=== PATIENT | male | born 1935 | race Native Hawaiian/Other Pacific Islander ===

== ENCOUNTER 2016-05-12 01:31 | Emergency (ER) | payer MEDICARE, OTHER ==
[~2016-05-12] VITALS: Ht 172.7 cm; Wt 80.0 kg
[~2016-05-12 01:31] MED LIST: ALFU1TAB10 PO; ASPI1TAB7 PO; BUDE.25I NEB; LOSA100T PO; PREN0.01 PO; VITA-83 PO; VITA200017 PO
[2016-05-12 01:34] VITALS: BP 136/86; PULSE 96; RESP 18; TEMP 98.1; O2SAT 96
[2016-05-12] MEDS ORDERED: SODIUM CHLOR 0.9% 1000 ML INJ 1,000 ML IV SCH (01:34)
[2016-05-12 01:37] VITALS: O2SAT 98
[2016-05-12] MEDS ORDERED: HYDROmorphone HCL PF 1 MG/ML VIAL IVS ONE (01:45)
[2016-05-12] MEDS ORDERED: ONDANSETRON HCL 4 MG/2 ML VIAL IVP ONE (01:45)
[2016-05-12] MEDS ORDERED: SODIUM CHLORIDE 0.9% FLUSH 5 ML FLUSH IVF PRN (01:45)
[2016-05-12 02:02] VITALS: BP 136/86; PULSE 100; RESP 25; O2SAT 95
[2016-05-12 02:02] LABS: AUTOMATED NEUTROPHIL # 7.5 TH/MM3 (1.8-7.7); BASOPHIL % 0.4 % (0.0-2.0); EOSINOPHIL # 0.1 TH/MM3 (0-0.4); EOSINOPHIL % 0.8 % (0.0-4.0); HEMATOCRIT 33.8 % (39.0-51.0); HEMO FLAGS DIFF FINAL; LYMPH % 16.4 % (9.0-44.0); LYMPHOCYTE # 1.7 TH/MM3 (1.0-4.8); MEAN CELL VOLUME 88.2 FL (80.0-100.0); MEAN CORPUSCULAR HEMOGLOBIN 30.7 PG (27.0-34.0); MEAN CORPUSCULAR HGB CONC 34.8 % (32.0-36.0); MONO % 8.3 % (0.0-8.0); NEUT % 74.1 % (16.0-70.0); PLATELET COUNT 214 TH/MM3 (150-450); RED BLOOD COUNT 3.83 MIL/MM3 (4.50-5.90); RED CELL DISTRIBUTION WIDTH 13.2 % (11.6-17.2); WHITE BLOOD COUNT 10.2 TH/MM3 (4.0-11.0)
[2016-05-12] MEDS ORDERED: DIATRIZOATE MEGLUM/DIATRIZOATE SOD 9 ML CUP ONE ×2 (02:10→02:53)
[2016-05-12 02:17] LABS: ALT (GPT) 18 U/L (12-78); ANION GAP 10 MEQ/L (5-15); AST (GOT) 17 U/L (15-37); BICARBONATE 21.8 MEQ/L (21.0-32.0); BLOOD UREA NITROGEN 21 MG/DL (7-18); CHLORIDE 107 MEQ/L (98-107); GLOMERULAR FILTRATION RATE 98 ML/MIN (>89); POTASSIUM 3.7 MEQ/L (3.5-5.1); SODIUM (NA) 139 MEQ/L (136-145)
[2016-05-12 02:19] LABS: ALKALINE PHOSPHATASE 80 U/L (45-117); TOTAL BILIRUBIN ADULT 0.8 MG/DL (0.2-1.0)
--- NOTE | 2016-05-12 02:24 | PD ---
HPI Chief Complaint: GI Complaint Time Seen by Provider: 01:34 Travel History International Travel<30 days: No Contact w/Intl Traveler<30days: No Traveled to known affect area: No History of Present Illness HPI The patient is 81 years old. He arrives from [facility] and [facility]. A plain film of the abdomen there revealed distention of the small and large bowel. No air-fluid level was. EMS notes tenderness primarily in the right abdomen with distention. Seen the blood pressure was 120/86 heart rate was 90 with a pulse ox of 97% earlier in the evening he received oral analgesics without benefit. No N/V. He reports worsening pain in the abdomen w coughing. He states he has had no flatus. Patient has a PEG tube. PFSH Past Medical History Arthritis: Yes Asthma: No Blood Disorders: No Anxiety: Yes Depression: Yes Heart Rhythm Problems: No Cancer: Yes Cardiovascular Problems: Yes (hx anemia, hyperlipidemia, ) High Cholesterol: No Chemotherapy: Yes Chest Pain: No Congestive Heart Failure: No COPD: No Diabetes: No Diminished Hearing: Yes Endocrine: No Gastrointestinal Disorders: Yes GERD: No Glaucoma: No Genitourinary: Yes (FREQUENCY, prostate hypertrophy) Headaches: Yes Hepatitis: No Hiatal Hernia: No Hypertension: Yes Immune Disorder: No Implanted Vascular Access Dvce: Yes Kidney Stones: No Musculoskeletal: Yes (post laminectomy syndrome, chronic pain, osteoarthritis) Neurologic: Yes (tremor, cerebral atherosclerosis, ?tia, bells palsy, brachial neuritis) Psychiatric: Yes (anxiety/ depression) Reproductive: No Respiratory: Yes (hx bronchitis 05/12) Migraines: Yes Radiation Therapy: Yes (SEEDS?) Renal Failure: No Seizures: No Sleep Apnea: No Thyroid Disease: No Ulcer: No PNEUMOCCOCAL Vaccine (Year): 1 Past Surgical History AICD: No Appendectomy: No Arteriovenous Shunt: No Body Medical Devices: PINS IN BACK Cholecystectomy: No Eye Surgery: Yes (CATARACTS ZORAIDA) Genitourinary Surgery: Yes (PROSTATE SEEDS) Insulin Pump: No Joint Replacement: Yes (zoraida KNEES, RT SHOULDER ) Neurologic Surgery: Yes (LUMBAR FUSION, cervical fusion) Oral Surgery: Yes (WISDOM TEETH) Pacemaker: No Other Surgery: Yes Social History Alcohol Use: Yes (rare occ) Tobacco Use: No Substance Use: No Allergies-Medications (Allergen,Severity, Reaction): Coded Allergies: Flomax (Verified Allergy, Severe, SWELLING IN EARS, 05/12/16) Hydroxyzine (Verified Allergy, Severe, JOINT SWELLING, 05/12/16) denies Iodine (Verified Allergy, Severe, topical causes joint swelling, 05/12/16) STATES IODINE INTRAVENOUSLY CAUSED REACTION NOT TOPICAL denies Reported Meds & Prescriptions Reported Meds & Active Scripts Active Reported Vitamin C (Ascorbic Acid) 500 Mg Tab 500 Mg G-TUBE Ultram (Tramadol HCl) 50 Mg Tab 50 Mg G-TUBE Q6H PRN Risperdal (Risperidone) 0.5 Mg Tab 0.5 Mg G-TUBE HS Nuedexta 20-10 mg (Dextromethorphan HBr-Quinidine) 1 Cap Cap 1 Cap G-TUBE Q12HR Natural Balance Tears Opth Drops (Artificial Tear Solution Opth Drops) 0.1-0.3% Soln 1 Drop EACH EYE QID Losartan (Losartan Potassium) 100 Mg Tab 100 Mg G-TUBE DAILY Doxazosin (Doxazosin Mesylate) 4 Mg Tab 4 Mg G-TUBE DAILY Cimetidine 200 Mg Tab 200 Mg G-TUBE BID Ativan (Lorazepam) 0.5 Mg Tab 0.5 Mg G-TUBE Q6H PRN Review of Systems Except as stated in HPI: all other systems reviewed are Neg Physical Exam Narrative GENERAL: 81-year-old male well-nourished well-developed moderate distress secondary to pain SKIN: Warm and dry. HEAD: Atraumatic. Normocephalic. EYES: Pupils equal and round. No scleral icterus. No injection or drainage. ENT: No nasal bleeding or discharge. Mucous membranes pink and moist. NECK: Trachea midline. No JVD. CARDIOVASCULAR: Regular rate and rhythm. No murmur appreciated. RESPIRATORY: No accessory muscle use. Clear to auscultation. Breath sounds equal bilaterally. GASTROINTESTINAL: Distention. Diffuse tenderness. Intact PEG tube without erythema or signs cellulitis at site of entry. MUSCULOSKELETAL: No obvious deformities. No clubbing. No cyanosis. No edema. NEUROLOGICAL: Awake and alert. No obvious cranial nerve deficits. Motor grossly within normal limits. Normal speech. PSYCHIATRIC: Appropriate mood and affect; insight and judgment normal. Data Data Last Documented VS Vital Signs Date Time Temp Pulse Resp B/P Pulse Ox O2 Delivery O2 Flow Rate FiO2 05/12/16 02:02 18 05/12/16 02:02 100 136/86 95 Room Air 05/12/16 01:34 98.1 VS reviewed Orders Complete Blood Count With Diff (05/12/16 01:34) Comprehensive Metabolic Panel (05/12/16 01:34) Lactic Acid (05/12/16 01:34) Ct Abd/Pel W/O Iv Contrast (05/12/16 01:34) Iv Access Insert/Monitor (05/12/16 01:34) Ecg Monitoring (05/12/16 01:34) Oximetry (05/12/16 01:34) Ondansetron Inj (Zofran Inj) (05/12/16 01:45) Sodium Chlor 0.9% 1000 Ml Inj (Ns 1000 M (05/12/16 01:34) Sodium Chloride 0.9% Flush (Ns Flush) (05/12/16 01:45) Hydromorphone Pf Inj (Dilaudid Pf Inj) (05/12/16 01:45) Oral Contrast - Adult (05/12/16 01:45) Diatrizoate Liq (Md Lam Liq) (05/12/16 02:10) Hydromorphone Pf Inj (Dilaudid Pf Inj) (05/12/16 03:00) Diatrizoate Liq (Md Lam Liq) (05/12/16 02:53) Labs Laboratory Tests Test 05/12/16 01:45 White Blood Count 10.2 TH/MM3 Red Blood Count 3.83 MIL/MM3 Hemoglobin 11.8 GM/DL Hematocrit 33.8 % Mean Corpuscular Volume 88.2 FL Mean Corpuscular Hemoglobin 30.7 PG Mean Corpuscular Hemoglobin 34.8 % Concent Red Cell Distribution Width 13.2 % Platelet Count 214 TH/MM3 Mean Platelet Volume 7.1 FL Neutrophils (%) (Auto) 74.1 % Lymphocytes (%) (Auto) 16.4 % Monocytes (%) (Auto) 8.3 % Eosinophils (%) (Auto) 0.8 % Basophils (%) (Auto) 0.4 % Neutrophils # (Auto) 7.5 TH/MM3 Lymphocytes # (Auto) 1.7 TH/MM3 Monocytes # (Auto) 0.8 TH/MM3 Eosinophils # (Auto) 0.1 TH/MM3 Basophils # (Auto) 0.0 TH/MM3 CBC Comment DIFF FINAL Differential Comment Sodium Level 139 MEQ/L Potassium Level 3.7 MEQ/L Chloride Level 107 MEQ/L Carbon Dioxide Level 21.8 MEQ/L Anion Gap 10 MEQ/L Blood Urea Nitrogen 21 MG/DL Creatinine 0.76 MG/DL Estimat Glomerular Filtration 98 ML/MIN Rate Random Glucose 113 MG/DL Lactic Acid Level 1.6 mmol/L Calcium Level 7.9 MG/DL Total Bilirubin 0.8 MG/DL Aspartate Amino Transf 17 U/L (AST/SGOT) Alanine Aminotransferase 18 U/L (ALT/SGPT) Alkaline Phosphatase 80 U/L Total Protein 7.2 GM/DL Albumin 2.6 GM/DL MDM Medical Decision Making Medical Screen Exam Complete: Yes Emergency Medical Condition: Yes Medical Record Reviewed: Yes Differential Diagnosis Gastritis, pancreatitis, appendicitis, acute cholecystitis, ascending cholangitis, AAA, perforated viscous, mesenteric ischemia, hepatitis, cystitis, hydronephrosis/hydroureter/nephroureter calculus, mesenteric adenitis, biliary colic Narrative Course CBC & BMP Diagram 05/12/16 01:45 LFTs normal Lactic acid 1.6 Gastric tube was placed on low intermittent suction approximately 150 cc of red brownish aspirate was collected. Last 24 hours Impressions Abdomen/Pelvis CT 05/12/16 0134 Signed Impressions: Service Date/Time: Thursday, May 12, 2016 03:01 - CONCLUSION: 1. No evidence of acute abdominal or pelvic process. No masses are identified. 2. Fecal impaction 3. Bibasilar atelectasis Jaxon Erwin MD Case was discussed with the radiologist over the phone specifically with regard to possible obstruction. Dr. Erwin cannot find any evidence of small or large bowel obstruction. There is a large fecal load in the rectal vault. The patient may benefit from an enema. He is quite sleepy 4:50 AM after 2 doses of Dilaudid. Fortunately there is no medical or surgical emergency and the patient can be discharged home. The abdomen of note is quite rotund however there is prominent intra and extra abdominal that likely contributory. Diagnosis Primary Impression: Constipation Qualified Code: K59.00 - Constipation, unspecified constipation type Referrals: DR CARMONA 1 day Additional Instructions: You have a choice when it comes to health care, and we are glad that you chose [facility]. Hopefully, we have met your expectations on today's visit. You are welcome to return to [facility] at any time, as we are committed to meeting the health care needs of our community. Med/Other Pt SpecificInfo: Prescription(s) given Scripts Sodium Phosphates (Enema Cedyx-Ti-Bzo)1 Nena Ene1 Units [place] Q2HR #4 Prov:Emmanuel Wellington MD 05/12/16 Disposition: 01 DISCHARGE HOME Condition: Stable Emmanuel Wellington MD May 12, 2016 02:24
[2016-05-12] MEDS ORDERED: HYDROmorphone HCL PF 1 MG/ML VIAL IV PUSH ONE (03:00)
--- NOTE | 2016-05-12 03:57 | RADRPT ---
EXAM DATE/TIME: 05/12/2016 03:01 [facility] COMPARISON: No previous studies available for comparison. INDICATIONS : Abdomen pain. Posiible obstruction. ORAL CONTRAST: Partial prescribed oral contrast ingested. RADIATION DOSE: 12.13 CTDIvol (mGy) MEDICAL HISTORY : Cardiovascular disease. Hypertension. Carcinoma, prostate. SURGICAL HISTORY : Total knee replacement, left. Total knee replacement, right.Fusion, lumbar.Peg Tube ENCOUNTER: Initial ACUITY: 1 day PAIN SCALE: 5/10 LOCATION: Bilateral abdomen TECHNIQUE: Volumetric scanning of the abdomen and pelvis was performed. Using automated exposure control and ad justment of the mA and/or kV according to patient size, radiation dose was kept as low as reasonably achievable to obtain optimal diagnostic quality images. FINDINGS: There is subsegmental atelectasis in the both bases. Coronary artery calcifications are present. A s mall hiatal hernia is present. The liver and spleen are normal in size and no focal defects are identified. The gallbladder and panc reas are unremarkable. No intrahepatic or extrahepatic ductal dilatation is seen. The right adrenal g land is unremarkable. There is a nodule in the left adrenal gland likely reflecting adenoma measuring 8 mm. The right kidney is unremarkable. There is a single simple cyst in the left kidney measuring 3.5 cm in the midpole. Gastrostomy tube is present Examination of the pelvis demonstrates no evidence of free fluid or pelvic mass. No abnormally enlarg ed inguinal or retroperitoneal lymph nodes are present. The bladder is unremarkable. There is diverti culosis without evidence of diverticulitis. Fecal impaction is present. CONCLUSION: 1. No evidence of acute abdominal or pelvic process. No masses are identified. 2. Fecal impaction 3. Bibasilar atelectasis Jaxon Erwin MD on May 12, 2016 at 3:50 Board Certified Radiologist. This report was verified electronically.
[2016-05-12] MEDS ORDERED: CIME200T G-TUBE (04:19)
[2016-05-12] MEDS ORDERED: ULTR50TA5 G-TUBE (04:19)
[2016-05-12] MEDS ORDERED: RISP0.5T20 G-TUBE (04:19)
[2016-05-12] MEDS ORDERED: NUED20CA G-TUBE (04:19)
[2016-05-12] MEDS ORDERED: DOXA1TAB34 G-TUBE (04:19)
[2016-05-12] MEDS ORDERED: VITA500T G-TUBE (04:19)
[2016-05-12] MEDS ORDERED: ARTI99.0 EACH EYE (04:19)
[2016-05-12] MEDS ORDERED: LOSA100T G-TUBE (04:19)
[2016-05-12] MEDS ORDERED: LORA-392 G-TUBE (04:19)
[2016-05-12] MEDS ORDERED: SODIENE9 PR (04:56)
[2016-05-12 05:13] VITALS: BP 100/53; PULSE 53; RESP 18; TEMP 98.1; O2SAT 100
[2016-05-12] MEDS ORDERED: SOD PHOSPHATE/SOD BIPHOSPHATE (ADULT) ENEMA 133ML PR ONE (05:45)
[2016-05-12 06:02] VITALS: BP 111/83; PULSE 104; RESP 20; TEMP 98.4; O2SAT 96
[2016-05-12 08:30] VITALS: BP 113/76; PULSE 93; RESP 20; O2SAT 93
[2016-05-21] MEDS ORDERED: SODIUM CHLOR 0.45% 1000 ML INJ 1,000 ML IV SCH (18:49)
[2016-05-21] MEDS ORDERED: NALOXONE HCL 0.4 MG/ML AMP IV PRN (19:00)
[2016-05-21] MEDS ORDERED: SODIUM CHLORIDE 0.9% FLUSH 5 ML FLUSH FLUSH PRN (19:00)
[2016-05-21] MEDS ORDERED: ACETAMINOPHEN 325 MG TAB PO PRN (19:00)
[2016-05-21] MEDS ORDERED: ONDANSETRON HCL 4 MG/2 ML VIAL IVP PRN (19:00)
[2016-05-21] MEDS ORDERED: MAGNESIUM HYDROXIDE SUSP 30 ML CUP PO PRN (19:00)
[2016-05-21] MEDS ORDERED: oxyCODONE/ACETAMINOPHEN 5 MG/325 MG TAB PO PRN (19:15)
[2016-05-21] MEDS ORDERED: SODIUM CHLORIDE 0.9% FLUSH 5 ML FLUSH FLUSH SCH (21:00)
== END 2016-05-12 09:06 | disposition home or self-care (01) ==
LOC: NEPC 01:31 → NEPA 09:06
DX: K59.00 Constipation, unspecified (principal); E78.5 Hyperlipidemia, unspecified; D64.9 Anemia, unspecified; N40.0 Benign prostatic hyperplasia without lower urinary tract symptoms; I10 Essential (primary) hypertension; G51.0 Bell's palsy; M54.12 Radiculopathy, cervical region; R25.1 Tremor, unspecified
CPT/HCPCS: 74176; 80053; 83605; 85025; 96361; 96374; 96375; 96376; 99284; J1170; J2405; J7030; Q9963

== ENCOUNTER 2016-05-21 15:27 | Inpatient (IN) | payer MEDICARE, OTHER ==
[~2016-05-21] VITALS: Ht 167.6 cm; Wt 77.6 kg
[2016-05-21] VITALS (7 sets, daily range): BP systolic 111–125; BP diastolic 70–83; PULSE 96–105; RESP 18–20; TEMP 96–97.6; O2SAT 95–100
[~2016-05-21 15:27] MED LIST changes: -ALFU1TAB10 PO; +ARTI99.0 EACH EYE; -ASPI1TAB7 PO; -BUDE.25I NEB; +CIME200T G-TUBE; +DOXA1TAB34 G-TUBE; +LORA-392 G-TUBE; +LOSA100T G-TUBE; -LOSA100T PO; +NUED20CA G-TUBE; -PREN0.01 PO; +RISP0.5T20 G-TUBE; +SODIENE9 PR; +ULTR50TA5 G-TUBE; -VITA-83 PO; -VITA200017 PO; +VITA500T G-TUBE
[2016-05-21] MEDS ORDERED: SODIUM CHLOR 0.9% 1000 ML INJ 1,000 ML IV SCH (15:43)
[2016-05-21] MEDS ORDERED: PANTOPRAZOLE SODIUM 40 MG VIAL IVP ONE (15:45)
[2016-05-21] MEDS ORDERED: ONDANSETRON HCL 4 MG/2 ML VIAL IVP ONE (15:45)
--- NOTE | 2016-05-21 16:10 | PD ---
HPI Chief Complaint: GI Complaint Time Seen by Provider: 15:43 Travel History International Travel<30 days: No Contact w/Intl Traveler<30days: No Traveled to known affect area: No History of Present Illness HPI 81-year-old male was brought in by EMS from abdominal distention, nausea vomiting and possible constipation. retirement personnel reported patient has not had a bowel movement for one week. Patient has increased abdominal distention with nausea vomiting today. Patient is noncommunicable and unable to provide information. Patient has history of anemia, dyslipidemia, hypertension, anxiety depression, back surgery. Patient has G-tube in place however treating was withhold today secondary to vomiting and abdominal distention. PFSH Past Medical History Arthritis: Yes Asthma: No Blood Disorders: No Anxiety: Yes Depression: Yes Heart Rhythm Problems: No Cancer: Yes Cardiovascular Problems: Yes (hx anemia, hyperlipidemia, ) High Cholesterol: No Chemotherapy: Yes Chest Pain: No Congestive Heart Failure: No COPD: No Diabetes: No Diminished Hearing: Yes Endocrine: No Gastrointestinal Disorders: Yes GERD: No Glaucoma: No Genitourinary: Yes (FREQUENCY, prostate hypertrophy) Headaches: Yes Hepatitis: No Hiatal Hernia: No Hypertension: Yes Immune Disorder: No Implanted Vascular Access Dvce: Yes Kidney Stones: No Musculoskeletal: Yes (post laminectomy syndrome, chronic pain, osteoarthritis) Neurologic: Yes (tremor, cerebral atherosclerosis, ?tia, bells palsy, brachial neuritis) Psychiatric: Yes (anxiety/ depression) Reproductive: No Respiratory: Yes (hx bronchitis 05/12) Migraines: Yes Radiation Therapy: Yes (SEEDS?) Renal Failure: No Seizures: No Sleep Apnea: No Thyroid Disease: No Ulcer: No PNEUMOCCOCAL Vaccine (Year): 1 Past Surgical History AICD: No Appendectomy: No Arteriovenous Shunt: No Body Medical Devices: PINS IN BACK Cholecystectomy: No Eye Surgery: Yes (CATARACTS ZORAIDA) Genitourinary Surgery: Yes (PROSTATE SEEDS) Insulin Pump: No Joint Replacement: Yes (zoraida KNEES, RT SHOULDER ) Neurologic Surgery: Yes (LUMBAR FUSION, cervical fusion) Oral Surgery: Yes (WISDOM TEETH) Pacemaker: No Other Surgery: Yes Social History Alcohol Use: No Tobacco Use: No Substance Use: No Allergies-Medications (Allergen,Severity, Reaction): Coded Allergies: Flomax (Verified Allergy, Severe, SWELLING IN EARS, 05/12/16) Hydroxyzine (Verified Allergy, Severe, JOINT SWELLING, 05/12/16) denies Iodine (Verified Allergy, Severe, topical causes joint swelling, 05/12/16) STATES IODINE INTRAVENOUSLY CAUSED REACTION NOT TOPICAL denies Reported Meds & Prescriptions Reported Meds & Active Scripts Active Enema Dnnde-Is-Jxl (Sodium Phosphates) 1 Nena Nena 1 Units [place] Q2HR Reported Vitamin C (Ascorbic Acid) 500 Mg Tab 500 Mg G-TUBE Ultram (Tramadol HCl) 50 Mg Tab 50 Mg G-TUBE Q6H PRN Risperdal (Risperidone) 0.5 Mg Tab 0.5 Mg G-TUBE HS Nuedexta 20-10 mg (Dextromethorphan HBr-Quinidine) 1 Cap Cap 1 Cap G-TUBE Q12HR Natural Balance Tears Opth Drops (Artificial Tear Solution Opth Drops) 0.1-0.3% Soln 1 Drop EACH EYE QID Losartan (Losartan Potassium) 100 Mg Tab 100 Mg G-TUBE DAILY Doxazosin (Doxazosin Mesylate) 4 Mg Tab 4 Mg G-TUBE DAILY Cimetidine 200 Mg Tab 200 Mg G-TUBE BID Ativan (Lorazepam) 0.5 Mg Tab 0.5 Mg G-TUBE Q6H PRN Review of Systems General / Constitutional: No: Fever Eyes: No: Visual changes HENT: No: Headaches Cardiovascular: No: Chest Pain or Discomfort Respiratory: No: Shortness of Breath Gastrointestinal: Positive: Nausea, Changes in Bowel Habits, No: Abdominal Pain Genitourinary: No: Dysuria Musculoskeletal: No: Pain Skin: No Rash Neurologic: No: Weakness Psychiatric: No: Depression Endocrine: No: Polydipsia Hematologic/Lymphatic: No: Easy Bruising Physical Exam Narrative GENERAL: Well-nourished, well-developed patient. SKIN: Warm and dry. HEAD: Normocephalic. EYES: No scleral icterus. No injection or drainage. NECK: Supple, trachea midline. No JVD or lymphadenopathy. CARDIOVASCULAR: Regular rate and rhythm without murmurs, gallops, or rubs. RESPIRATORY: Breath sounds equal bilaterally. No accessory muscle use. GASTROINTESTINAL: Abdomen distended. Hypoactive bowel sounds. No guarding. MUSCULOSKELETAL: No cyanosis, or edema. BACK: Nontender without obvious deformity. No CVA tenderness. Neurologic exam: Patient is awake and alert however noncommunicable. Patient moves all extremity well. No obvious focal neurological deficit. Data Data Last Documented VS Vital Signs Date Time Temp Pulse Resp B/P Pulse Ox O2 Delivery O2 Flow Rate FiO2 05/21/16 15:36 97.6 105 20 125/75 100 Orders Complete Blood Count With Diff (05/21/16 15:43) Comprehensive Metabolic Panel (05/21/16 15:43) Lipase (05/21/16 15:43) Prothrombin Time / Inr (Pt) (05/21/16 15:43) Act Partial Throm Time (Ptt) (05/21/16 15:43) Urinalysis - C+S If Indicated (05/21/16 15:43) Ct Abd/Pel W Iv Contrast(Rout) (05/21/16 15:43) Iv Access Insert/Monitor (05/21/16 15:43) Ecg Monitoring (05/21/16 15:43) Oximetry (05/21/16 15:43) Ondansetron Inj (Zofran Inj) (05/21/16 15:45) Pantoprazole Inj (Protonix Inj) (05/21/16 15:45) Sodium Chlor 0.9% 1000 Ml Inj (Ns 1000 M (05/21/16 15:43) Electrocardiogram (05/21/16 15:43) Chest, Single Ap (05/21/16 15:43) MDM Medical Decision Making Medical Screen Exam Complete: Yes Emergency Medical Condition: Yes Differential Diagnosis Differential diagnosis including gastritis, small bowel obstruction, large bowel obstruction, constipation, fecal impaction. Narrative Course 81-year-old male with abdominal distention, vomiting, possible constipation. Rod Siu MD May 21, 2016 16:10
--- NOTE | 2016-05-21 16:11 | RADRPT ---
EXAM DATE/TIME: 05/21/2016 15:59 [facility] COMPARISON: CT ABDOMEN & PELVIS W/O CONTRAST, May 12, 2016, 3:01. CHEST SINGLE AP, April 10, 2012, 2:06. INDICATIONS : Altered mental status. MEDICAL HISTORY : Cardiovascular disease. Hypertension. Carcinoma,prostate. SURGICAL HISTORY : Peg tube ENCOUNTER: Initial ACUITY: 1 day PAIN SCORE: Non-responsive. LOCATION: Bilateral chest FINDINGS: A single view of the chest demonstrates the lungs to be symmetrically aerated without evidence of mas s, infiltrate or effusion. There is hypoaeration of both lung alejandro most likely from poor aspiratio n. The cardiomediastinal contours are unremarkable. Osseous structures are intact and stable. There are multiple air-filled dilated loops of colon in the abdomen. CONCLUSION: No acute pulmonary infiltrates. Distended air-filled loops of colon. Franki Melton MD on May 21, 2016 at 16:08 Board Certified Radiologist. This report was verified electronically.
[2016-05-21 16:27] LABS: AUTOMATED NEUTROPHIL # 10.3 TH/MM3 (1.8-7.7); BASOPHIL % 0.3 % (0.0-2.0); EOSINOPHIL % 0.2 % (0.0-4.0); HEMATOCRIT 31.8 % (39.0-51.0); HEMO FLAGS DIFF FINAL; LYMPH % 7.1 % (9.0-44.0); LYMPHOCYTE # 0.8 TH/MM3 (1.0-4.8); MEAN CELL VOLUME 89.8 FL (80.0-100.0); MEAN CORPUSCULAR HEMOGLOBIN 30.9 PG (27.0-34.0); MEAN CORPUSCULAR HGB CONC 34.4 % (32.0-36.0); MONO % 3.2 % (0.0-8.0); NEUT % 89.2 % (16.0-70.0); PLATELET COUNT 344 TH/MM3 (150-450); RED BLOOD COUNT 3.54 MIL/MM3 (4.50-5.90); RED CELL DISTRIBUTION WIDTH 13.8 % (11.6-17.2); WHITE BLOOD COUNT 11.6 TH/MM3 (4.0-11.0)
[2016-05-21 16:31] LABS: APTT (PATIENT) 27.2 SEC (24.3-30.1); PROTHROMBIN TIME - PATIENT 11.4 SEC (9.8-11.6)
[2016-05-21 16:37] LABS: ANION GAP 9 MEQ/L (5-15); BICARBONATE 26.3 MEQ/L (21.0-32.0); BLOOD UREA NITROGEN 25 MG/DL (7-18); CHLORIDE 98 MEQ/L (98-107); GLOMERULAR FILTRATION RATE 59 ML/MIN (>89); POTASSIUM 4.4 MEQ/L (3.5-5.1); SODIUM (NA) 133 MEQ/L (136-145)
[2016-05-21 16:40] LABS: ALKALINE PHOSPHATASE 104 U/L (45-117); ALT (GPT) 32 U/L (12-78); AST (GOT) 23 U/L (15-37)
[2016-05-21] MEDS ORDERED: IPRASOL INH (16:51)
[2016-05-21] MEDS ORDERED: LORA1TAB12 G-TUBE (16:51)
[2016-05-21] MEDS ORDERED: FERR325T G-TUBE (16:51)
[2016-05-21] MEDS ORDERED: VITA2000 G-TUBE (16:56)
[2016-05-21 17:36] LABS: BLOOD, URINE NEG (NEG); COMMENT (UR) CULT NOT INDICATED; CULTURE IF INDICATED CULT NOT INDICATED; GLUCOSE,URINE NEG (NEG); HYALINE CAST, URINE 2 /lpf (RARE); KETONE, URINE TRACE mg/dL (NEG); MUCUS URINE FEW /lpf (OCC); NITRITE,URINE NEG (NEG); SQUAMOUS EPITHELIAL CELL URINE <1 /hpf (0-5); URINE COLOR YELLOW (YELLW/STRAW)
--- NOTE | 2016-05-21 17:37 | RADRPT ---
EXAM DATE/TIME: 05/21/2016 16:54 [facility] COMPARISON: CT THORAX W/O CONTRAST, April 07, 2012, 18:37. CT ABDOMEN & PELVIS W/O CONTRAST, May 12, 2016 , 3:01. INDICATIONS : Abdomen pain with distention and vomiting for 1 week. ORAL CONTRAST: No oral contrast ingested. RADIATION DOSE: 13.14 CTDIvol (mGy) MEDICAL HISTORY : Hypertension. Carcinoma, prostate. Anemia SURGICAL HISTORY : Fusion, lumbar. Total knee replacement, left.Total knee replacement, right.Peg tube ENCOUNTER: Initial ACUITY: 1 day PAIN SCALE: 7/10 LOCATION: Bilateral abdomen TECHNIQUE: Volumetric scanning of the abdomen and pelvis was performed. Using automated exposure control and ad justment of the mA and/or kV according to patient size, radiation dose was kept as low as reasonably achievable to obtain optimal diagnostic quality images. FINDINGS: LOWER LUNGS: Mild lung base atelectasis. LIVER: Homogeneous density without lesion. There is no dilation of the biliary tree. No calcified gallston es. SPLEEN: Normal size without lesion. PANCREAS: Within normal limits. KIDNEYS: Exophytic left renal cyst arising posterolateral with the midpole region. No evidence of hydronephros is. ADRENAL GLANDS: Within normal limits. VASCULAR: There is no aortic aneurysm. BOWEL/MESENTERY: A gastrostomy tube is present with balloon in the body the stomach. There is moderate fluid and gaseo us distention of bowel loops throughout the abdomen and pelvis including the entire colon. There is a bundant formed stool in the rectum. There is diverticular involvement of the sigmoid region without d efinite wall thickening or inflammatory change identified. There is no evidence of extraluminal gas o r fluid. ABDOMINAL WALL: Within normal limits. RETROPERITONEUM: There is no lymphadenopathy. BLADDER: No wall thickening or mass. REPRODUCTIVE: Within normal limits. INGUINAL: Surgical clips in the right inguinal region. No evidence of adenopathy. MUSCULOSKELETAL: Degenerative changes in the spine and previous lumbar spine hardware fusion. CONCLUSION: Diffuse fluid and gaseous distention of bowel throughout. Significant stool again noted within the re ctum. No other acute CT findings. Jose Breen MD on May 21, 2016 at 17:27 Board Certified Radiologist. This report was verified electronically.
--- NOTE | 2016-05-21 19:11 | HHI.HP ---
[facility] Jaxon Enriquez MD Admission Diagnosis obstipation, bowel obstruction Diagnoses: (1) Fecal impaction Diagnosis: Principal (2) Constipation Diagnosis: Principal (3) Dehydration Diagnosis: Principal (4) Leukocytosis Diagnosis: Principal Travel History International Travel<30 Days: No Contact w/Intl Traveler <30 Da: No Traveled to Known Affected Are: No History of Present Illness Is an 81-year-old male with PMH of HTN, Anxiety, Depression, Prostate CA, Chronic Pain, Post Laminectomy Syndrome and PEG Tube Placement who was sent to the ER from [facility] for evaluation of abdominal distention, nausea and vomiting. Recent ER visit 05/12/16 for similar symptoms, CT Abd/ Pelvis 05/12/16 w/ fecal impaction, d/c'd from ER w/ prescription for Enema. Sent to ER again today for same. Per records, pt with no BM x1 wk. No fever or diarrhea reported. Pt unable to provide history. On arrival, BP 125/75, HR 105, O2 sat 100% on RA, Afebrile. WBC 11.6. GFR 59 decreased from 98 on . UA negative for UTI. CXR with no acute findings. CT Abd/Pelvis w/ diffuse fluid and gaseous distention of bowel throughout, significant stool again noted within the rectum. GI Consult placed by ER physician, s/p Protonix IV in ER. Review of Systems ROS: Unable to obtain Past Family Social History Past Medical History PMH: HTN, Anxiety, Depression, Prostate CA, Chronic Pain, Post Laminectomy Syndrome and PEG Tube Placement Past Surgical History PAST SURGICAL HISTORY: Bilateral Cataract Surgery, Prostate Seeds, Bilateral Knee Replacement, Right Shoulder Replacement, Lumbar and Cervical Fusion, [place] Teeth Extraction Allergies: Coded Allergies: Flomax (Verified Allergy, Severe, SWELLING IN EARS, 05/12/16) Hydroxyzine (Verified Allergy, Severe, JOINT SWELLING, 05/12/16) denies Iodine (Verified Allergy, Severe, topical causes joint swelling, 05/12/16) STATES IODINE INTRAVENOUSLY CAUSED REACTION NOT TOPICAL denies Family History PAST FAMILY HISTORY: Reviewed. No h/o DM or CAD Social History PAST SOCIAL HISTORY: Negative for alcohol, tobacco or drugs. Physical Exam Vital Signs Vital Signs Date Time Temp Pulse Resp B/P Pulse Ox O2 Delivery O2 Flow Rate FiO2 05/21/16 18:08 105 18 118/79 95 Room Air 05/21/16 17:15 101 20 117/71 96 Room Air 05/21/16 16:02 96 Room Air 05/21/16 15:36 97.6 105 20 125/75 100 Physical Exam PE: GENERAL: Elderly white male in no acute distress, nonverbal HEENT: PERRLA, EOMI. No scleral icterus or conjunctival pallor. No lid lag or facial droop. CARDIOVASCULAR: Regular rate and rhythm. No obvious murmurs to auscultation. No chest tenderness to palpation. RESPIRATORY: No obvious rhonchi or wheezing. Clear to auscultation. Breath sounds equal bilaterally. GASTROINTESTINAL: Abdomen soft, non-tender, nondistended. BS normal. PEG tube in place. MUSCULOSKELETAL: Extremities without clubbing, cyanosis, or edema. No obvious deformities. NEUROLOGICAL: Awake, alert, nonverbal. No new focal neurologic deficits. Moving both upper and lower extremities spontaneously. Laboratory Laboratory Tests Test 05/21/16 05/21/16 16:00 17:12 White Blood Count 11.6 Red Blood Count 3.54 Hemoglobin 10.9 Hematocrit 31.8 Mean Corpuscular Volume 89.8 Mean Corpuscular Hemoglobin 30.9 Mean Corpuscular Hemoglobin 34.4 Concent Red Cell Distribution Width 13.8 Platelet Count 344 Mean Platelet Volume 7.2 Neutrophils (%) (Auto) 89.2 Lymphocytes (%) (Auto) 7.1 Monocytes (%) (Auto) 3.2 Eosinophils (%) (Auto) 0.2 Basophils (%) (Auto) 0.3 Neutrophils # (Auto) 10.3 Lymphocytes # (Auto) 0.8 Monocytes # (Auto) 0.4 Eosinophils # (Auto) 0.0 Basophils # (Auto) 0.0 CBC Comment DIFF FINAL Differential Comment Prothrombin Time 11.4 Prothromb Time International 1.0 Ratio Activated Partial 27.2 Thromboplast Time Sodium Level 133 Potassium Level 4.4 Chloride Level 98 Carbon Dioxide Level 26.3 Anion Gap 9 Blood Urea Nitrogen 25 Creatinine 1.19 Estimat Glomerular Filtration 59 Rate Random Glucose 188 Calcium Level 9.5 Total Bilirubin 1.0 Aspartate Amino Transf 23 (AST/SGOT) Alanine Aminotransferase 32 (ALT/SGPT) Alkaline Phosphatase 104 Total Protein 9.1 Albumin 3.1 Lipase 73 Urine Color YELLOW Urine Turbidity CLEAR Urine pH 6.0 Urine Specific [place] 1.027 Urine Protein 30 Urine Glucose (UA) NEG Urine Ketones TRACE Urine Occult Blood NEG Urine Nitrite NEG Urine Bilirubin NEG Urine Urobilinogen 2.0 Urine Leukocyte Esterase NEG Urine WBC 2 Urine Squamous Epithelial <1 Cells Urine Amorphous Sediment RARE Urine Hyaline Casts 2 Urine Mucus FEW Microscopic Urinalysis Comment CULT NOT INDICATED Result Diagram: 05/21/16 1600 05/21/16 1600 Assessment and Plan Problem List: (1) Fecal impaction ICD Code: K56.41 Status: Acute (2) Constipation ICD Code: K59.00 Status: Acute (3) Dehydration ICD Code: E86.0 Status: Acute (4) Leukocytosis ICD Code: D72.829 Status: Acute Assessment and Plan A/P: 1. Fecal Impaction: sent to ER from SNF secondary to abdominal distention, nausea/vomiting, similar presentation 05/12/16, CT Abd/Pelvis at that time w/ fecal impaction. CT Abd/Pelvis today w/ similar findings, significant stool in rectum and diffuse fluid/gaseous distention, images reviewed by me. GI Consulted by ER physician. S/p Protonix IV in ER. IVF for hydration, Lactulose , Dulcolax as needed. 2. Constipation: Per SNF report, no BM in 1wk, CT w/ no obvious obstruction however significant amount of stool. IVF for hydration, Lactulose, Dulcolax, GI eval. 3. Dehydration: GFR 59, decreased from 98 o 05/12/16. U/a negative for UTI. IVF, repeat labs in am. 4. Leukocytosis: U/a negative, CXR w/ no acute infiltrate, images reviewed by me. Likely intra-abdominal source, start IV Cipro/Flagyl for empiric treatment of underlying colitis. 5. DVT Prophylaxis: SCD/Teds. 6. Social work for d/c planning as needed. 7. Case discussed w/ ER physician at length. Physician Certification 2 Midnight Certification Type: Admission for Inpatient Services Order for Inpatient Services The services are ordered in accordance with Medicare regulations or non- Medicare payer requirements, as applicable. In the case of services not specified as inpatient-only, they are appropriately provided as inpatient services in accordance with the 2-midnight benchmark. Estimated LOS (days): 2 days is the estimated time the patient will need to remain in the hospital, assuming treatment plan goals are met and no additional complications. Post-Hospital Plan: Not yet determined Anne-Marie Wang MD May 21, 2016 19:11
[2016-05-21] MEDS ORDERED: MORPHINE SULFATE 4 MG/ML INJ IV PRN (19:15)
[2016-05-21] MEDS ORDERED: SODIUM CHLORIDE 0.9% FLUSH 5 ML FLUSH FLUSH PRN (19:15)
[2016-05-21] MEDS ORDERED: ACETAMINOPHEN 325 MG TAB G-TUBE PRN (19:15)
[2016-05-21] MEDS ORDERED: ONDANSETRON HCL 4 MG/2 ML VIAL IVP PRN (19:15)
[2016-05-21] MEDS ORDERED: BISACODYL 10 MG SUPP PR PRN (19:15)
[2016-05-21] MEDS ORDERED: traMADol HCL 50 MG TAB G-TUBE PRN (19:15)
[2016-05-21] MEDS ORDERED: LORazepam 1 MG TAB G-TUBE PRN (19:15)
--- NOTE | 2016-05-21 19:29 | PD ---
Data Data Last Documented VS Vital Signs Date Time Temp Pulse Resp B/P Pulse Ox O2 Delivery O2 Flow Rate FiO2 05/21/16 18:08 105 18 118/79 95 Room Air 05/21/16 15:36 97.6 Orders Complete Blood Count With Diff (05/21/16 15:43) Comprehensive Metabolic Panel (05/21/16 15:43) Lipase (05/21/16 15:43) Prothrombin Time / Inr (Pt) (05/21/16 15:43) Act Partial Throm Time (Ptt) (05/21/16 15:43) Urinalysis - C+S If Indicated (05/21/16 15:43) Iv Access Insert/Monitor (05/21/16 15:43) Ecg Monitoring (05/21/16 15:43) Oximetry (05/21/16 15:43) Ondansetron Inj (Zofran Inj) (05/21/16 15:45) Pantoprazole Inj (Protonix Inj) (05/21/16 15:45) Sodium Chlor 0.9% 1000 Ml Inj (Ns 1000 M (05/21/16 15:43) Electrocardiogram (05/21/16 15:43) Chest, Single Ap (05/21/16 15:43) Ct Abd/Pel W/O Iv Contrast (05/21/16 16:29) Admit Order (Ed Use Only) (05/21/16 ) Consult Gastroenterology (05/21/16 ) Labs Laboratory Tests Test 05/21/16 05/21/16 16:00 17:12 White Blood Count 11.6 TH/MM3 Red Blood Count 3.54 MIL/MM3 Hemoglobin 10.9 GM/DL Hematocrit 31.8 % Mean Corpuscular Volume 89.8 FL Mean Corpuscular Hemoglobin 30.9 PG Mean Corpuscular Hemoglobin 34.4 % Concent Red Cell Distribution Width 13.8 % Platelet Count 344 TH/MM3 Mean Platelet Volume 7.2 FL Neutrophils (%) (Auto) 89.2 % Lymphocytes (%) (Auto) 7.1 % Monocytes (%) (Auto) 3.2 % Eosinophils (%) (Auto) 0.2 % Basophils (%) (Auto) 0.3 % Neutrophils # (Auto) 10.3 TH/MM3 Lymphocytes # (Auto) 0.8 TH/MM3 Monocytes # (Auto) 0.4 TH/MM3 Eosinophils # (Auto) 0.0 TH/MM3 Basophils # (Auto) 0.0 TH/MM3 CBC Comment DIFF FINAL Differential Comment Prothrombin Time 11.4 SEC Prothromb Time International 1.0 RATIO Ratio Activated Partial 27.2 SEC Thromboplast Time Sodium Level 133 MEQ/L Potassium Level 4.4 MEQ/L Chloride Level 98 MEQ/L Carbon Dioxide Level 26.3 MEQ/L Anion Gap 9 MEQ/L Blood Urea Nitrogen 25 MG/DL Creatinine 1.19 MG/DL Estimat Glomerular Filtration 59 ML/MIN Rate Random Glucose 188 MG/DL Calcium Level 9.5 MG/DL Total Bilirubin 1.0 MG/DL Aspartate Amino Transf 23 U/L (AST/SGOT) Alanine Aminotransferase 32 U/L (ALT/SGPT) Alkaline Phosphatase 104 U/L Total Protein 9.1 GM/DL Albumin 3.1 GM/DL Lipase 73 U/L Urine Color YELLOW Urine Turbidity CLEAR Urine pH 6.0 Urine Specific [place] 1.027 Urine Protein 30 mg/dL Urine Glucose (UA) NEG mg/dL Urine Ketones TRACE mg/dL Urine Occult Blood NEG Urine Nitrite NEG Urine Bilirubin NEG Urine Urobilinogen 2.0 MG/DL Urine Leukocyte Esterase NEG Urine WBC 2 /hpf Urine Squamous Epithelial <1 /hpf Cells Urine Amorphous Sediment RARE Urine Hyaline Casts 2 /lpf Urine Mucus FEW /lpf Microscopic Urinalysis Comment CULT NOT INDICATED MDM Supervised Visit with JAEN: Yes Narrative Course Assumed care patient. 81-year-old man with constipation, PEG tube, here 10 days ago with constipation with a CT scan that shows some stool in the rectal vault, no worsening pain distention vomiting and a CT scan showing diffuse fluid and air in the dilated bowel suggestive of blockage. I disimpacted the patient of the large amount of medium firm stool. I spoke with Dr. Brito who came to the bedside. We'll admit patient for enemas, monitoring for any worsening obstruction or blockage. Diagnosis Primary Impression: Obstipation Additional Impression: Fecal impaction Admitting Information Admitting Physician Requests: Admit Obinna Ryan MD May 21, 2016 19:29
[2016-05-21] MEDS ORDERED: RESP: ALBUTEROL 2.5 MG/IPRATROPIUM 0.5 MG NEB (PRN) INH (19:45)
[2016-05-21] MEDS: CIPROFLOXACIN 400 MG PREMIX 200 ML IV SCH (20:04)
[2016-05-21] MEDS: SODIUM CHLOR 0.9% 1000 ML INJ 1,000 ML IV SCH (20:05)
[2016-05-21] MEDS: risperiDONE 0.5 MG TAB G-TUBE SCH (21:00)
[2016-05-21] MEDS: NON-FORMULARY DRUG (Dextromethorphan HBr-Quinidine (Nuedexta 20-10 mg) 1 CAP) G-TUBE SCH (21:00)
[2016-05-21] MEDS: ARTIFICIAL TEARS OPTH SOLN 15 ML BTL EACH EYE SCH (21:00)
--- NOTE | 2016-05-21 21:12 | EKG ---
Date Performed: 05/21/2016 Time Performed: 15:52:22 PTAGE: 81 years EKG: SINUS TACHYCARDIA ST ELEVATION, CONSIDER INFERIOR INJURY PREVIOUS TRACING : 04/16/2012 19.03 Compared to previous tracing, heart rate has increase d, inferior ST elevation is now evident. DOCTOR: Brandyn Ortiz Interpretating Date/Time 05/21/2016 21:11:49
[2016-05-21] MEDS: metroNIDAZOLE 500 MG INJ 100 ML IV SCH (21:23)
[2016-05-21] MEDS: LACTULOSE SYRUP 20 GM/30 ML CUP G-TUBE SCH (21:23)
[2016-05-21] MEDS: SODIUM CHLORIDE 0.9% FLUSH 5 ML FLUSH FLUSH SCH (21:24)
[2016-05-22] VITALS: BP 109/60; PULSE 99; RESP 20; TEMP 96.1; O2SAT 95
[2016-05-22 04:00] VITALS: BP 115/79; PULSE 105; RESP 23; TEMP 96; O2SAT 95
[2016-05-22] MEDS: SODIUM CHLOR 0.9% 1000 ML INJ 1,000 ML IV SCH ×3 (04:12→23:04)
[2016-05-22] MEDS: metroNIDAZOLE 500 MG INJ 100 ML IV SCH ×3 (04:12→22:55)
[2016-05-22 06:49] LABS: ALKALINE PHOSPHATASE 75 U/L (45-117); ALT (GPT) 22 U/L (12-78); ANION GAP 6 MEQ/L (5-15); AST (GOT) 18 U/L (15-37); BLOOD UREA NITROGEN 33 MG/DL (7-18); CHLORIDE 103 MEQ/L (98-107); GLOMERULAR FILTRATION RATE 73 ML/MIN (>89); POTASSIUM 4.1 MEQ/L (3.5-5.1); SODIUM (NA) 138 MEQ/L (136-145); TOTAL BILIRUBIN ADULT 0.7 MG/DL (0.2-1.0)
[2016-05-22 07:00] LABS: AUTOMATED NEUTROPHIL # 8.6 TH/MM3 (1.8-7.7); BASOPHIL % 0.2 % (0.0-2.0); EOSINOPHIL % 0.4 % (0.0-4.0); HEMATOCRIT 24.8 % (39.0-51.0); HEMO FLAGS DIFF FINAL; LYMPH % 15.8 % (9.0-44.0); LYMPHOCYTE # 1.8 TH/MM3 (1.0-4.8); MEAN CELL VOLUME 90.1 FL (80.0-100.0); MEAN CORPUSCULAR HEMOGLOBIN 30.4 PG (27.0-34.0); MEAN CORPUSCULAR HGB CONC 33.7 % (32.0-36.0); NEUT % 75.6 % (16.0-70.0); PLATELET COUNT 276 TH/MM3 (150-450); RED BLOOD COUNT 2.75 MIL/MM3 (4.50-5.90); RED CELL DISTRIBUTION WIDTH 13.9 % (11.6-17.2); WHITE BLOOD COUNT 11.3 TH/MM3 (4.0-11.0)
[2016-05-22 08:00] VITALS: BP 113/65; PULSE 82; RESP 16; TEMP 98.2; O2SAT 96
[2016-05-22] MEDS: SODIUM CHLORIDE 0.9% FLUSH 5 ML FLUSH FLUSH SCH ×2 (09:00→22:58)
[2016-05-22] MEDS: ARTIFICIAL TEARS OPTH SOLN 15 ML BTL EACH EYE SCH ×4 (09:00→22:54)
[2016-05-22] MEDS: NON-FORMULARY DRUG (Dextromethorphan HBr-Quinidine (Nuedexta 20-10 mg) 1 CAP) G-TUBE SCH ×2 (09:00→22:55)
[2016-05-22] MEDS: CIPROFLOXACIN 400 MG PREMIX 200 ML IV SCH ×2 (09:46→23:25)
[2016-05-22] MEDS: LACTULOSE SYRUP 20 GM/30 ML CUP G-TUBE SCH ×4 (09:46→23:04)
[2016-05-22] MEDS: LOSARTAN 50 MG TAB G-TUBE SCH (09:47)
[2016-05-22] MEDS: DOXAZOSIN MESYLATE 4 MG TAB G-TUBE SCH (09:47)
--- NOTE | 2016-05-22 11:29 | MB ---
cc: CHANTELLE HAREDN M.D. DATE OF CONSULTATION: 05/22/2016 REFERRING PHYSICIAN: Dr. Wang. DATE OF : 1935 REASON FOR CONSULTATION: This is a pleasant 81-year-old male with past medical history of hypertension and anxiety, depression, prostate cancer, chronic abdominal pain post laminectomy and percutaneous endoscopic gastrostomy tube placed, unable to eat. The patient came to the emergency room because of abdominal pain and distension. He stated that there was no bowel movement for at least one week. He denied any other problem. The patient had a CT scan which showed fecal impaction throughout the course. He was seen in the emergency room a few days ago and was given enema and sent home but he stated that he still did not have any bowel movement for a week and he came back with more discomfort. The patient does not remember if he had a colonoscopy done on in the past. PAST MEDICAL HISTORY As above. SURGERIES: 1. Cataract surgery 2. Prostate seeds 3. Bilateral knee replacement 4. Right shoulder replacement. 5. Lumbar and cervical fusion 6. Teeth extraction. FAMILY HISTORY Noncontributory SOCIAL HISTORY Negative for tobacco, drug or alcohol. ALLERGIES Flomax Hydroxyzine Iodine REVIEW OF SYSTEMS All 12 points are negative except for on history of present illness, the patient is a poor historian. PHYSICAL EXAMINATION IN GENERAL: Alert, oriented at this time but does not speak, he is oriented to person, answering yes/no questions. No acute distress. VITAL SIGNS: Stable. Heart rate was 105. HEAD, EYES, EARS, NOSE, AND THROAT: Pupils are reactive to light. NECK: The neck is supple. CHEST: Clear to auscultation, Percussion. CARDIAC: Regular rate and rhythm. No murmur or gallop. ABDOMEN: Soft, mildly distended. Positive bowel sounds takes tube in place. MUSCULOSKELETAL: No clubbing or cyanosis. NEUROLOGIC: Move all extremities nonverbal LABORATORY DATA White count 11.3, hemoglobin 8.4 down from 10.9, platelet 270, six home INR 1.0, BUN 33. Liver function tests normal lipase 73. CT scan showed diffuse fluid and gaseous distension of the bowel three rule out significant stool noted with the rectum. ASSESSMENT/PLAN This is a pleasant 81-year-old gentleman with possible stool impaction versus ileus and the patient will be started on laxatives and enemas to try to clean it up. He is anemic now the patient will need an endoscopy and colonoscopy was he would be able to tolerate prep and possibly Tuesday or Tuesday and meanwhile continue supportive care will check hemoglobin tomorrow and will follow up with you. MD BJ Duff/nathan /10:13 AM /11:01 AM
[2016-05-22 12:00] VITALS: BP 98/60; PULSE 84; RESP 12; TEMP 97.5; O2SAT 98
[2016-05-22 16:00] VITALS: PULSE 83; RESP 16; TEMP 97; O2SAT 99
--- NOTE | 2016-05-22 16:13 | HHI.PR ---
Subjective Remarks As per RN report patient has had 3 BM's sp far patient is nonverbal tachycardia improving afebrile Objective Vitals Vital Signs Date Time Temp Pulse Resp B/P Pulse Ox O2 Delivery O2 Flow Rate FiO2 05/22/16 12:00 97.5 84 12 98/60 98 05/22/16 08:00 98.2 82 16 113/65 96 05/22/16 04:00 96.0 105 23 115/79 95 05/22/16 00:00 96.1 99 20 109/60 95 05/21/16 22:45 96.0 100 19 111/83 96 05/21/16 21:50 96 18 117/70 96 Room Air 05/21/16 19:46 97 18 114/72 96 Room Air 05/21/16 18:08 105 18 118/79 95 Room Air 05/21/16 17:15 101 20 117/71 96 Room Air I/O 05/21/16 05/21/16 05/21/16 05/22/16 05/22/16 05/22/16 07:00 15:00 23:00 07:00 15:00 23:00 Intake Total 500 ml 0 ml 1855 ml Output Total 550 ml Balance 500 ml -550 ml 1855 ml Intake Oral 0 ml IV Total 500 ml 1855 ml Output Stool Total 550 ml # Voids 1 # Bowel Movements 1 Result Diagram: 05/22/16 0538 05/22/16 0538 Imaging Last Impressions Abdomen/Pelvis CT 05/21/16 1629 Signed Impressions: Service Date/Time: Saturday, May 21, 2016 16:54 - CONCLUSION: Diffuse fluid and gaseous distention of bowel throughout. Significant stool again noted within the rectum. No other acute CT findings. Jose Breen MD Chest X-Ray 05/21/16 1543 Signed Impressions: Service Date/Time: Saturday, May 21, 2016 15:59 - CONCLUSION: No acute pulmonary infiltrates. Distended air-filled loops of colon. Franki Melton MD Images reviewed by me Objective Remarks GENERAL: Elderly white male in no acute distress, nonverbal HEENT: PERRLA, EOMI. No scleral icterus or conjunctival pallor. No lid lag or facial droop. CARDIOVASCULAR: Regular rate and rhythm. No obvious murmurs to auscultation. No chest tenderness to palpation. RESPIRATORY: No obvious rhonchi or wheezing. Clear to auscultation. Breath sounds equal bilaterally. GASTROINTESTINAL: Abdomen soft, non-tender, Distended. BS normal. PEG tube in place - C/D/I no erythema or discharge noted around PEG insertion. MUSCULOSKELETAL: Extremities without clubbing, cyanosis, or edema. No obvious deformities. NEUROLOGICAL: Awake, alert, nonverbal. No new focal neurologic deficits. Moving both upper and lower extremities spontaneously. Medications and IVs Current Medications Medications (Trade) Dose Ordered Sig/Florecita Route Start Time Stop Time Status Last Admin Lactulose 30 ml 30 ml QID G-TUBE 05/21/16 21:00 05/22/16 14:13 (NS 1000 ml Inj) 1,000 ml @ 100 mls/hr Q10H IV 05/21/16 19:05 05/22/16 14:14 (NS Flush) 2 ml UNSCH PRN FLUSH 05/21/16 19:15 (NS Flush) 2 ml BID FLUSH 05/21/16 21:00 05/21/16 21:24 (Zofran Inj) 4 mg Q6H PRN IVP 05/21/16 19:15 (Dulcolax Supp) 10 mg DAILY PRN NE 05/21/16 19:15 (Tylenol) 650 mg Q6H PRN G-TUBE 05/21/16 19:15 (Morphine Inj) 2 mg Q3H PRN IV 05/21/16 19:15 (Cardura) 4 mg DAILY G-TUBE 05/22/16 09:00 05/22/16 09:47 (Ativan) 1 mg Q6H PRN G-TUBE 05/21/16 19:15 (Cozaar) 100 mg DAILY G-TUBE 05/22/16 09:00 05/22/16 09:47 (risperDAL) 0.5 mg HS G-TUBE 05/21/16 21:00 (Ultram) 50 mg Q6H PRN G-TUBE 05/21/16 19:15 05/22/16 10:01 (Tears Naturale Opth Soln) 1 drop QID EACH EYE 05/21/16 21:00 05/22/16 09:00 Non-Formulary Medication 1 cap 1 cap Q12HR G-TUBE 05/21/16 21:00 Ciprofloxacin/ Dextrose 200 ml @ 200 mls/hr Q12H IV 05/21/16 20:00 05/22/16 09:46 (Flagyl 500 Mg Inj) 100 ml @ 100 mls/hr Q8H IV 05/21/16 20:00 05/22/16 14:14 A/P Problem List: (1) Fecal impaction ICD Code: K56.41 Status: Acute (2) Constipation ICD Code: K59.00 Status: Acute (3) Dehydration ICD Code: E86.0 Status: Acute (4) Leukocytosis ICD Code: D72.829 Status: Acute Assessment and Plan 1. Fecal Impaction: sent to ER from SNF secondary to abdominal distention, nausea/vomiting, similar presentation 05/12/16, CT Abd/Pelvis at that time w/ fecal impaction. CT Abd/Pelvis today w/ similar findings, significant stool in rectum and diffuse fluid/gaseous distention, images reviewed by me. GI Consulted by ER physician. S/p Protonix IV in ER. IVF for hydration, Lactulose , Dulcolax as needed. 05/22 Patient has had BM's x3 today. Abdomen still somewhat distended. Patient has been seen by GI, pressure recommendations. Continue laxatives and enemas as per GI recommendations and patient for possible EGD and colonoscopy as per GI schedule. 2. Constipation: Per SNF report, no BM in 1wk, CT w/ no obvious obstruction however significant amount of stool. IVF for hydration, Lactulose, Dulcolax, GI eval as above 3. Dehydration: GFR 59, decreased from 98 o 05/12/16. U/a negative for UTI. IVF, repeat labs in am. 4. Leukocytosis: U/a negative, CXR w/ no acute infiltrate, images reviewed by me. Likely intra-abdominal source, start IV Cipro/Flagyl for empiric treatment of underlying colitis. 5. DVT Prophylaxis: SCD/Teds. 6. Anemia: Normocytic, Check iron studies, ferritin. Monitor CBC. 6. Social work for d/c planning as needed. Jorge Veloz MD May 22, 2016 16:13
[2016-05-22] MEDS ORDERED: SODIUM CHLOR 0.9% 1000 ML INJ 1,000 ML IV ONE (17:00)
[2016-05-22 17:43] LABS: AUTOMATED NEUTROPHIL # 5.7 TH/MM3 (1.8-7.7); BASOPHIL % 0.4 % (0.0-2.0); EOSINOPHIL # 0.1 TH/MM3 (0-0.4); EOSINOPHIL % 1.6 % (0.0-4.0); HEMATOCRIT 24.5 % (39.0-51.0); HEMO FLAGS DIFF FINAL; LYMPH % 16.1 % (9.0-44.0); LYMPHOCYTE # 1.2 TH/MM3 (1.0-4.8); MEAN CELL VOLUME 89.9 FL (80.0-100.0); MEAN CORPUSCULAR HGB CONC 34.4 % (32.0-36.0); NEUT % 73.9 % (16.0-70.0); PLATELET COUNT 259 TH/MM3 (150-450); RED BLOOD COUNT 2.73 MIL/MM3 (4.50-5.90); RED CELL DISTRIBUTION WIDTH 13.9 % (11.6-17.2); WHITE BLOOD COUNT 7.7 TH/MM3 (4.0-11.0)
[2016-05-22 20:00] VITALS: BP 113/62; PULSE 79; RESP 16; TEMP 96.4; O2SAT 99
[2016-05-22] MEDS: risperiDONE 0.5 MG TAB G-TUBE SCH (22:59)
[2016-05-23 00:23] VITALS: BP 117/72; PULSE 90; RESP 18; TEMP 97.6; O2SAT 94
[2016-05-23 04:00] VITALS: BP 106/61; PULSE 73; RESP 18; TEMP 96.8; O2SAT 97
[2016-05-23] MEDS: metroNIDAZOLE 500 MG INJ 100 ML IV SCH ×3 (04:30→20:13)
[2016-05-23 08:00] VITALS: BP 111/70; PULSE 75; RESP 16; TEMP 96.9; O2SAT 97
[2016-05-23] MEDS: SODIUM CHLORIDE 0.9% FLUSH 5 ML FLUSH FLUSH SCH ×2 (08:55→21:00)
[2016-05-23] MEDS: ARTIFICIAL TEARS OPTH SOLN 15 ML BTL EACH EYE SCH ×4 (08:55→21:59)
[2016-05-23] MEDS: CIPROFLOXACIN 400 MG PREMIX 200 ML IV SCH ×2 (08:55→21:59)
[2016-05-23] MEDS: DOXAZOSIN MESYLATE 4 MG TAB G-TUBE SCH (08:56)
[2016-05-23] MEDS: LACTULOSE SYRUP 20 GM/30 ML CUP G-TUBE SCH ×4 (08:56→22:02)
[2016-05-23] MEDS: NON-FORMULARY DRUG (Dextromethorphan HBr-Quinidine (Nuedexta 20-10 mg) 1 CAP) G-TUBE SCH ×2 (08:56→21:59)
[2016-05-23] MEDS: LOSARTAN 50 MG TAB G-TUBE SCH (09:00)
[2016-05-23] MEDS: SODIUM CHLOR 0.9% 1000 ML INJ 1,000 ML IV SCH ×2 (10:42→22:08)
[2016-05-23 10:47] LABS: AUTOMATED NEUTROPHIL # 5.9 TH/MM3 (1.8-7.7); BASOPHIL % 0.3 % (0.0-2.0); EOSINOPHIL # 0.3 TH/MM3 (0-0.4); EOSINOPHIL % 3.2 % (0.0-4.0); HEMO FLAGS DIFF FINAL; LYMPH % 14.6 % (9.0-44.0); LYMPHOCYTE # 1.2 TH/MM3 (1.0-4.8); MEAN CORPUSCULAR HEMOGLOBIN 30.6 PG (27.0-34.0); MEAN CORPUSCULAR HGB CONC 33.3 % (32.0-36.0); MONO % 6.7 % (0.0-8.0); NEUT % 75.2 % (16.0-70.0); PLATELET COUNT 239 TH/MM3 (150-450); RED BLOOD COUNT 2.72 MIL/MM3 (4.50-5.90); WHITE BLOOD COUNT 7.9 TH/MM3 (4.0-11.0)
[2016-05-23 11:05] LABS: ALT (GPT) 38 U/L (12-78); ANION GAP 7 MEQ/L (5-15); AST (GOT) 42 U/L (15-37); BICARBONATE 24.3 MEQ/L (21.0-32.0); BLOOD UREA NITROGEN 19 MG/DL (7-18); CHLORIDE 109 MEQ/L (98-107); GLOMERULAR FILTRATION RATE 77 ML/MIN (>89); MAGNESIUM 2.2 MG/DL (1.5-2.5); POTASSIUM 3.3 MEQ/L (3.5-5.1); SODIUM (NA) 140 MEQ/L (136-145)
[2016-05-23 11:07] LABS: ALKALINE PHOSPHATASE 68 U/L (45-117); FERRITIN 111 NG/ML (26-388); TOTAL BILIRUBIN ADULT 0.5 MG/DL (0.2-1.0); TRANSFERRIN IRON PROFILE 142 MG/DL (200-360)
[2016-05-23 12:00] VITALS: BP 95/61; PULSE 71; RESP 16; TEMP 97.3; O2SAT 97
--- NOTE | 2016-05-23 13:03 | HHI.GIFU ---
Subjective Remarks 81 year old male lying in bed in no apparent distress. Has had multiple BMs, x 9. Patient reports abdominal pain in RLQ. Objective Vitals I&O Vital Signs Date Time Temp Pulse Resp B/P Pulse Ox O2 Delivery O2 Flow Rate FiO2 05/23/16 08:00 96.9 75 16 111/70 97 05/23/16 04:00 96.8 73 18 106/61 97 05/23/16 00:23 97.6 90 18 117/72 94 05/22/16 20:00 96.4 79 16 113/62 99 05/22/16 16:00 97.0 83 16 99 I/O 05/22/16 05/22/16 05/22/16 05/23/16 05/23/16 05/23/16 07:00 15:00 23:00 07:00 15:00 23:00 Intake Total 0 ml 1855 ml 860 ml 800 ml Output Total 550 ml Balance -550 ml 1855 ml 860 ml 800 ml Intake Oral 0 ml 0 ml IV Total 1855 ml 800 ml 800 ml Other 60 ml Output Stool Total 550 ml # Voids 1 1 6 # Bowel Movements 1 8 Laboratory Laboratory Tests Test 05/22/16 05/23/16 17:22 09:56 White Blood Count 7.7 7.9 Red Blood Count 2.73 2.72 Hemoglobin 8.4 8.3 Hematocrit 24.5 25.0 Mean Corpuscular Volume 89.9 92.0 Mean Corpuscular Hemoglobin 31.0 30.6 Mean Corpuscular Hemoglobin 34.4 33.3 Concent Red Cell Distribution Width 13.9 14.0 Platelet Count 259 239 Mean Platelet Volume 6.6 6.5 Neutrophils (%) (Auto) 73.9 75.2 Lymphocytes (%) (Auto) 16.1 14.6 Monocytes (%) (Auto) 8.0 6.7 Eosinophils (%) (Auto) 1.6 3.2 Basophils (%) (Auto) 0.4 0.3 Neutrophils # (Auto) 5.7 5.9 Lymphocytes # (Auto) 1.2 1.2 Monocytes # (Auto) 0.6 0.5 Eosinophils # (Auto) 0.1 0.3 Basophils # (Auto) 0.0 0.0 CBC Comment DIFF FINAL DIFF FINAL Differential Comment Sodium Level 140 Potassium Level 3.3 Chloride Level 109 Carbon Dioxide Level 24.3 Anion Gap 7 Blood Urea Nitrogen 19 Creatinine 0.94 Estimat Glomerular Filtration 77 Rate Random Glucose 111 Calcium Level 7.8 Phosphorus Level 1.5 Magnesium Level 2.2 Iron Level 40 Total Iron Binding Capacity 199 Percent Iron Saturation 20.1 Ferritin 111 Total Bilirubin 0.5 Aspartate Amino Transf 42 (AST/SGOT) Alanine Aminotransferase 38 (ALT/SGPT) Alkaline Phosphatase 68 Total Protein 6.5 Albumin 2.2 Date/Time Procedure Status Source Growth 05/22/16 16:30 Stool Occult Blood (ABIGAIL) - Final Complete Stool Stool HEMOCCULT POSITIVE Imaging Last Impressions Abdomen/Pelvis CT 05/21/16 1629 Signed Impressions: Service Date/Time: Saturday, May 21, 2016 16:54 - CONCLUSION: Diffuse fluid and gaseous distention of bowel throughout. Significant stool again noted within the rectum. No other acute CT findings. Jose Breen MD Chest X-Ray 05/21/16 1543 Signed Impressions: Service Date/Time: Saturday, May 21, 2016 15:59 - CONCLUSION: No acute pulmonary infiltrates. Distended air-filled loops of colon. Franki Melton MD Physical Exam HEENT: PERRLA. Normocephalic; atraumatic; no jaundice. NECK: Neck is supple, no JVD, no lymphadenopathy. CHEST: CTA CARDIAC: RRR ABDOMEN: Distended. Tender to palpation at RLQ; no hepatosplenomegaly; bowel sounds are present x 4 quadrants. EXTREMITIES: No clubbing, cyanosis, or edema. SKIN: Normal; no rash; no jaundice. SALVAGE GRINDER: Answers yes/no questions. A&O x 1 (person). Assessment and Plan Plan ASSESSMENT: -Fecal impaction, Abdomen/Pelvis CT 05/21/16-->Diffuse fluid and gaseous distention of bowel throughout. Significant stool again noted within the rectum. No other acute CT findings. -Constipation, patient has had multiple BMs x 9. -Leukocytosis, resolved. Patient on Flagyl/Cipro for treatment of underlying colitis. U/A negative. CXR 05/21/16-->No acute pulmonary infiltrates. Distended air-filled loops of colon. WBC 7.9 -Anemia, Hemoglobin 8.3, Hematocrit 25. Hemoccult positive stool 05/22/16. PLAN: -Colonoscopy/EGD on Tuesday. -Obtain consents -NPO -Monitor HH, transfuse as needed. -Further recommendations to follow based on results of above. Patient seen and examined by Dr. Bailey and myself and this note is written on his behalf. Shanta Giraldo May 23, 2016 13:03
[2016-05-23 16:00] VITALS: BP_SYST 102; BP_SYST 119; BP_DIAS 62; BP_DIAS 71; PULSE 53; PULSE 76; RESP 16; TEMP 96.5; TEMP 98.3; O2SAT 100; O2SAT 98
[2016-05-23] MEDS ORDERED: PEG (High)/E-LYTE SOLN 4000 ML BTL PO ONE (16:00)
[2016-05-23 20:00] VITALS: BP 109/65; PULSE 81; RESP 17; TEMP 97.7; O2SAT 98
[2016-05-23] MEDS ORDERED: MAGNESIUM CITRATE SOLN 300 ML BTL PO ONE (20:15)
[2016-05-23] MEDS: risperiDONE 0.5 MG TAB G-TUBE SCH (21:59)
--- NOTE | 2016-05-23 23:29 | HHI.PR ---
Subjective Remarks defreed entry - patient seen earlier at 16:45 hrs Patient states abdominal pain is better had several bowel movements - x11 denies fevers/chills denies cp/sob still has some pain in RLQ Objective Vitals Vital Signs Date Time Temp Pulse Resp B/P Pulse Ox O2 Delivery O2 Flow Rate FiO2 05/23/16 20:00 97.7 81 17 109/65 98 05/23/16 16:00 96.5 76 16 102/62 98 05/23/16 12:00 97.3 71 16 95/61 97 05/23/16 08:00 96.9 75 16 111/70 97 05/23/16 04:00 96.8 73 18 106/61 97 05/23/16 00:23 97.6 90 18 117/72 94 I/O 05/22/16 05/22/16 05/22/16 05/23/16 05/23/16 05/23/16 07:00 15:00 23:00 07:00 15:00 23:00 Intake Total 0 ml 1855 ml 860 ml 800 ml 480 ml 950 ml Output Total 550 ml Balance -550 ml 1855 ml 860 ml 800 ml 480 ml 950 ml Intake Oral 0 ml 0 ml 480 ml IV Total 1855 ml 800 ml 800 ml 950 ml Other 60 ml Output Stool Total 550 ml # Voids 1 1 6 5 # Bowel Movements 1 8 2 Result Diagram: 05/23/16 0956 05/23/16 0956 Imaging Current Medications Medications (Trade) Dose Ordered Sig/Florecita Route Start Time Stop Time Status Last Admin Lactulose 30 ml 30 ml QID G-TUBE 05/21/16 21:00 05/23/16 22:02 (NS 1000 ml Inj) 1,000 ml @ 100 mls/hr Q10H IV 05/21/16 19:05 05/23/16 22:08 (NS Flush) 2 ml UNSCH PRN FLUSH 05/21/16 19:15 (NS Flush) 2 ml BID FLUSH 05/21/16 21:00 05/23/16 08:55 (Zofran Inj) 4 mg Q6H PRN IVP 05/21/16 19:15 (Dulcolax Supp) 10 mg DAILY PRN CA 05/21/16 19:15 (Tylenol) 650 mg Q6H PRN G-TUBE 05/21/16 19:15 (Morphine Inj) 2 mg Q3H PRN IV 05/21/16 19:15 (Cardura) 4 mg DAILY G-TUBE 05/22/16 09:00 05/23/16 08:56 (Ativan) 1 mg Q6H PRN G-TUBE 05/21/16 19:15 (Cozaar) 100 mg DAILY G-TUBE 05/22/16 09:00 05/22/16 09:47 (risperDAL) 0.5 mg HS G-TUBE 05/21/16 21:00 05/23/16 21:59 (Ultram) 50 mg Q6H PRN G-TUBE 05/21/16 19:15 05/22/16 10:01 (Tears Naturale Opth Soln) 1 drop QID EACH EYE 05/21/16 21:00 05/23/16 21:59 Non-Formulary Medication 1 cap 1 cap Q12HR G-TUBE 05/21/16 21:00 05/23/16 21:59 Ciprofloxacin/ Dextrose 200 ml @ 200 mls/hr Q12H IV 05/21/16 20:00 05/23/16 21:59 (Flagyl 500 Mg Inj) 100 ml @ 100 mls/hr Q8H IV 05/21/16 20:00 05/23/16 20:13 Objective Remarks GENERAL: Elderly white male in no acute distress, nonverbal HEENT: PERRLA, EOMI. No scleral icterus or conjunctival pallor. No lid lag or facial droop. CARDIOVASCULAR: Regular rate and rhythm. No obvious murmurs to auscultation. No chest tenderness to palpation. RESPIRATORY: No obvious rhonchi or wheezing. Clear to auscultation. Breath sounds equal bilaterally. GASTROINTESTINAL: Abdomen soft, non-tender, Distended. BS normal. PEG tube in place - C/D/I no erythema or discharge noted around PEG insertion. MUSCULOSKELETAL: Extremities without clubbing, cyanosis, or edema. No obvious deformities. NEUROLOGICAL: Awake, alert, nonverbal. No new focal neurologic deficits. Moving both upper and lower extremities spontaneously. Medications and IVs Current Medications Medications (Trade) Dose Ordered Sig/Florecita Route Start Time Stop Time Status Last Admin Lactulose 30 ml 30 ml QID G-TUBE 05/21/16 21:00 05/23/16 22:02 (NS 1000 ml Inj) 1,000 ml @ 100 mls/hr Q10H IV 05/21/16 19:05 05/23/16 22:08 (NS Flush) 2 ml UNSCH PRN FLUSH 05/21/16 19:15 (NS Flush) 2 ml BID FLUSH 05/21/16 21:00 05/23/16 08:55 (Zofran Inj) 4 mg Q6H PRN IVP 05/21/16 19:15 (Dulcolax Supp) 10 mg DAILY PRN CA 05/21/16 19:15 (Tylenol) 650 mg Q6H PRN G-TUBE 05/21/16 19:15 (Morphine Inj) 2 mg Q3H PRN IV 05/21/16 19:15 (Cardura) 4 mg DAILY G-TUBE 05/22/16 09:00 05/23/16 08:56 (Ativan) 1 mg Q6H PRN G-TUBE 05/21/16 19:15 (Cozaar) 100 mg DAILY G-TUBE 05/22/16 09:00 05/22/16 09:47 (risperDAL) 0.5 mg HS G-TUBE 05/21/16 21:00 05/23/16 21:59 (Ultram) 50 mg Q6H PRN G-TUBE 05/21/16 19:15 05/22/16 10:01 (Tears Naturale Opth Soln) 1 drop QID EACH EYE 05/21/16 21:00 05/23/16 21:59 Non-Formulary Medication 1 cap 1 cap Q12HR G-TUBE 05/21/16 21:00 05/23/16 21:59 Ciprofloxacin/ Dextrose 200 ml @ 200 mls/hr Q12H IV 05/21/16 20:00 05/23/16 21:59 (Flagyl 500 Mg Inj) 100 ml @ 100 mls/hr Q8H IV 05/21/16 20:00 05/23/16 20:13 Urinary Catheter: No Vascular Central Line Catheter: No A/P Problem List: (1) Fecal impaction ICD Code: K56.41 Status: Acute (2) Constipation ICD Code: K59.00 Status: Acute (3) Dehydration ICD Code: E86.0 Status: Acute (4) Leukocytosis ICD Code: D72.829 Status: Acute (5) Hypokalemia ICD Code: E87.6 Status: Acute Plan: Due to decreased po intake - replace and monitor. (6) Colitis ICD Code: K52.9 Status: Acute (7) Hypophosphatemia ICD Code: E83.39 Status: Acute Assessment and Plan 1. Fecal Impaction: sent to ER from SNF secondary to abdominal distention, nausea/vomiting, similar presentation 05/12/16, CT Abd/Pelvis at that time w/ fecal impaction. CT Abd/Pelvis today w/ similar findings, significant stool in rectum and diffuse fluid/gaseous distention, images reviewed by me. GI Consulted by ER physician. S/p Protonix IV in ER. IVF for hydration, Lactulose , Dulcolax as needed. 05/22 Patient has had BM's x3 today. Abdomen still somewhat distended. Patient has been seen by GI, pressure recommendations. Continue laxatives and enemas as per GI recommendations and patient for possible EGD and colonoscopy as per GI schedule. 05/23 several BM's. For colonoscopy/EGD in am. 2. Constipation: Per SNF report, no BM in 1wk, CT w/ no obvious obstruction however significant amount of stool. IVF for hydration, Lactulose, Dulcolax, GI following. Constipation seems to have resolved. 3. Dehydration: GFR 59, decreased from 98 o 05/12/16. U/a negative for UTI. IVF, repeat labs in am. 4. Leukocytosis: U/a negative, CXR w/ no acute infiltrate, images reviewed by me. Likely intra-abdominal source, start IV Cipro/Flagyl for empiric treatment of suspected colitis. WBC now resolved. 5. DVT Prophylaxis: SCD/Teds. 6. Anemia: Normocytic - iron panel consistent with early iron deficiency anemia. Will supplement oral iron after EGD/colonoscopy. 7. Hypophosphatemia - Due to poor oral intake - will start on k - phos. Continue to monitor phosphorus. 8. Hypokalemia - Due to poor oral intake. Replace and monitor. 6. Social work for d/c planning as needed. Jorge Veloz MD May 23, 2016 23:29
[2016-05-24] VITALS: BP 129/75; PULSE 85; RESP 17; TEMP 98.1; O2SAT 99
[2016-05-24 04:00] VITALS: BP 110/78; PULSE 87; RESP 17; TEMP 97.9; O2SAT 98
[2016-05-24] MEDS: metroNIDAZOLE 500 MG INJ 100 ML IV SCH ×2 (04:36→12:00)
[2016-05-24 08:00] VITALS: BP 114/73; PULSE 81; RESP 20; TEMP 97.2; O2SAT 97
[2016-05-24 08:50] VITALS: BP 114/73; PULSE 81; RESP 20; TEMP 97.2; O2SAT 97
[2016-05-24] MEDS: LOSARTAN 50 MG TAB G-TUBE SCH (09:00)
[2016-05-24] MEDS: NON-FORMULARY DRUG (Dextromethorphan HBr-Quinidine (Nuedexta 20-10 mg) 1 CAP) G-TUBE SCH (09:00)
[2016-05-24] MEDS ORDERED: PROPOFOL 200 MG/20 ML AMP IV ONE (09:25)
[2016-05-24] MEDS ORDERED: POTASSIUM CHLORIDE 10 MEQ CONTROLLED RELEASE TAB PO ONE (09:45)
--- NOTE | 2016-05-24 10:14 | PD.PROCEDR ---
GI Procedure REFERRING PHYSICIAN ROMY PROCEDURE PERFORMED EGD with biopsy followed by colonoscopy with snare polypectomy INDICATION FOR PROCEDURE Anemia, constipation PROCEDURE: The procedure, risks and benefits were discussed with Mr. Chand and informed consent was obtained. Anesthesia sedated him with Diprivan. He was placed in the left lateral decubitus position. EGD: The Pentax videoscope was introduced through the oropharynx and advanced to the second portion of the duodenum under direct visualization. Retroflexion was performed in the stomach. FINDINGS: The esophagus this appeared to be unremarkable and within normal limits The stomach there was some punctate patchy erythema in the antrum no ulcerations or erosions no blood or bleeding the rest of the gastric mucosa was unremarkable antral biopsies were taken for further evaluation The duodenum this was also unremarkable biopsies were taken for further evaluation of anemia Colonoscopy: The Pentax videoscope was introduced through the rectum and advanced to cecum where the ileocecal valve and appendiceal orifice were identified. Retroflexion was performed in the rectum. Colonic prep was good FINDINGS: Colonic withdrawal time greater than 6 minutes as the scope was slowly withdrawn colonic mucosa was carefully inspected the patient was noted to have a small polyp in the ascending colon this was removed using cold snare technique this was retrieved for further evaluation the patient was also noted to have significant diverticulosis of the distal sigmoid region there was also some patchy erythema noted in the sigmoid most likely secondary to the fecal impaction and disimpaction rectal examination and retroflexion were unremarkable ESTIMATED BLOOD LOSS: None SPECIMENS REMOVED: Gastric duodenal and colonic biopsies COMPLICATIONS: None IMPRESSION: Mild gastritis Otherwise normal EGD Ascending colon polyp Sigmoid diverticulosis moderate Otherwise unremarkable colonoscopy PLAN: Await biopsy Most likely cause of anemia is underlying malnutrition with an albumin of 2.2 Colonoscopy in 5 years Supportive care Derik Irizarry MD May 24, 2016 10:14
[2016-05-24] MEDS ORDERED: POTASSIUM PHOSPHATE/SODIUM PHOSPHATE 250 MG TAB PO SCH (11:00)
[2016-05-24] MEDS: CIPROFLOXACIN 400 MG PREMIX 200 ML IV SCH (11:05)
[2016-05-24] MEDS: ARTIFICIAL TEARS OPTH SOLN 15 ML BTL EACH EYE SCH ×2 (11:08→13:00)
[2016-05-24] MEDS: DOXAZOSIN MESYLATE 4 MG TAB G-TUBE SCH (11:09)
[2016-05-24] MEDS: SODIUM CHLORIDE 0.9% FLUSH 5 ML FLUSH FLUSH SCH (11:10)
[2016-05-24] MEDS: SODIUM CHLOR 0.9% 1000 ML INJ 1,000 ML IV SCH (11:10)
[2016-05-24] MEDS: LACTULOSE SYRUP 20 GM/30 ML CUP G-TUBE SCH ×2 (11:10→13:00)
[2016-05-24 12:00] VITALS: BP 131/71; PULSE 90; RESP 18; TEMP 97.2; O2SAT 98
[2016-05-24] MEDS ORDERED: PHENYLEPH/NS 1000 MCG/10 ML SYR IV ONE (12:00)
[2016-05-24] MEDS ORDERED: ePHEDrine/NS 25 MG/5 ML SYR IV ONE (12:00)
--- NOTE | 2016-05-24 14:33 | HHI.PR ---
Subjective Remarks Constipation resolved denies abdominal pain, nausea or vomiting denies cp/sob Objective Vitals Vital Signs Date Time Temp Pulse Resp B/P Pulse Ox O2 Delivery O2 Flow Rate FiO2 05/24/16 10:31 89 18 115/68 97 05/24/16 10:10 93 18 109/69 97 05/24/16 10:02 97.9 96 18 103/64 97 05/24/16 08:50 97.2 81 20 114/73 97 05/24/16 08:00 97.2 81 20 114/73 97 05/24/16 04:00 97.9 87 17 110/78 98 05/24/16 00:00 98.1 85 17 129/75 99 05/23/16 20:00 97.7 81 17 109/65 98 05/23/16 16:00 96.5 76 16 102/62 98 I/O 05/23/16 05/23/16 05/23/16 05/24/16 05/24/16 05/24/16 06:59 14:59 22:59 06:59 14:59 22:59 Intake Total 800 ml 480 ml 1190 ml 1495 ml 500 ml Balance 800 ml 480 ml 1190 ml 1495 ml 500 ml Intake Oral 480 ml 240 ml 0 ml IV Total 800 ml 950 ml 1495 ml Other 500 ml # Voids 6 5 2 2 # Bowel Movements 8 2 3 3 Result Diagram: 05/23/16 0956 05/23/16 0956 Imaging Last Impressions Abdomen/Pelvis CT 05/21/16 1629 Signed Impressions: Service Date/Time: Saturday, May 21, 2016 16:54 - CONCLUSION: Diffuse fluid and gaseous distention of bowel throughout. Significant stool again noted within the rectum. No other acute CT findings. Jose Breen MD Chest X-Ray 05/21/16 1543 Signed Impressions: Service Date/Time: Saturday, May 21, 2016 15:59 - CONCLUSION: No acute pulmonary infiltrates. Distended air-filled loops of colon. Franki Melton MD Objective Remarks GENERAL: Elderly white male in no acute distress, nonverbal HEENT: PERRLA, EOMI. No scleral icterus or conjunctival pallor. No lid lag or facial droop. CARDIOVASCULAR: Regular rate and rhythm. No obvious murmurs to auscultation. No chest tenderness to palpation. RESPIRATORY: No obvious rhonchi or wheezing. Clear to auscultation. Breath sounds equal bilaterally. GASTROINTESTINAL: Abdomen soft, non-tender, Distended. BS normal. PEG tube in place - C/D/I no erythema or discharge noted around PEG insertion. MUSCULOSKELETAL: Extremities without clubbing, cyanosis, or edema. No obvious deformities. NEUROLOGICAL: Awake, alert, nonverbal. No new focal neurologic deficits. Moving both upper and lower extremities spontaneously. Procedures EGD/colonoscopy on 05/24/16. Medications and IVs Current Medications Medications (Trade) Dose Ordered Sig/Florecita Route Start Time Stop Time Status Last Admin Lactulose 30 ml 30 ml QID G-TUBE 05/21/16 21:00 05/24/16 11:10 (NS 1000 ml Inj) 1,000 ml @ 100 mls/hr Q10H IV 05/21/16 19:05 05/24/16 11:10 (NS Flush) 2 ml UNSCH PRN FLUSH 05/21/16 19:15 (NS Flush) 2 ml BID FLUSH 05/21/16 21:00 05/24/16 11:10 (Zofran Inj) 4 mg Q6H PRN IVP 05/21/16 19:15 (Dulcolax Supp) 10 mg DAILY PRN VA 05/21/16 19:15 (Tylenol) 650 mg Q6H PRN G-TUBE 05/21/16 19:15 (Morphine Inj) 2 mg Q3H PRN IV 05/21/16 19:15 (Cardura) 4 mg DAILY G-TUBE 05/22/16 09:00 05/24/16 11:09 (Ativan) 1 mg Q6H PRN G-TUBE 05/21/16 19:15 (Cozaar) 100 mg DAILY G-TUBE 05/22/16 09:00 05/22/16 09:47 (risperDAL) 0.5 mg HS G-TUBE 05/21/16 21:00 05/23/16 21:59 (Ultram) 50 mg Q6H PRN G-TUBE 05/21/16 19:15 05/22/16 10:01 (Tears Naturale Opth Soln) 1 drop QID EACH EYE 05/21/16 21:00 05/24/16 11:08 Non-Formulary Medication 1 cap 1 cap Q12HR G-TUBE 05/21/16 21:00 05/24/16 09:00 Ciprofloxacin/ Dextrose 200 ml @ 200 mls/hr Q12H IV 05/21/16 20:00 05/24/16 11:05 (Flagyl 500 Mg Inj) 100 ml @ 100 mls/hr Q8H IV 05/21/16 20:00 05/24/16 04:36 (K-Phos Neutral) 250 mg Q8H PO 05/24/16 11:00 05/24/16 11:13 Urinary Catheter: No Vascular Central Line Catheter: No A/P Problem List: (1) Fecal impaction ICD Code: K56.41 Status: Resolved (2) Constipation ICD Code: K59.00 Status: Resolved (3) Dehydration ICD Code: E86.0 Status: Resolved (4) Leukocytosis ICD Code: D72.829 Status: Resolved (5) Hypokalemia ICD Code: E87.6 Status: Acute (6) Colitis ICD Code: K52.9 Status: Resolved (7) Hypophosphatemia ICD Code: E83.39 Status: Resolved Assessment and Plan 1. Fecal Impaction: sent to ER from SNF secondary to abdominal distention, nausea/vomiting, similar presentation 05/12/16, CT Abd/Pelvis at that time w/ fecal impaction. CT Abd/Pelvis today w/ similar findings, significant stool in rectum and diffuse fluid/gaseous distention, images reviewed by me. GI Consulted by ER physician. S/p Protonix IV in ER. IVF for hydration, Lactulose , Dulcolax as needed. Patient constipation resolved after above-mentioned management. GI consulted. Laxatives were continued. EGD was performed, it showed mild gastritis and colonoscopy showed an ascending colon polyp, sigmoid diverticulosis moderate, otherwise unremarkable colonoscopy. Continue PPI and follow-up with gastroenterology as an outpatient for further management after pathology results are available. 2. Constipation: Per SNF report, no BM in 1wk, CT w/ no obvious obstruction however significant amount of stool. IVF for hydration, Lactulose, Dulcolax, GI following. Constipation seems to have resolved. 3. Dehydration: GFR 59, decreased from 98 o 05/12/16. U/a negative for UTI. Resolved after IV fluid administration. Dehydration likely secondary to poor oral intake. 4. Leukocytosis: U/a negative, CXR w/ no acute infiltrate, images reviewed by me. Likely intra-abdominal source, start IV Cipro/Flagyl for empiric treatment of suspected colitis. WBC now resolved. 5. DVT Prophylaxis: SCD/Teds. 6. Anemia: Normocytic - iron panel consistent with early iron deficiency anemia. EGD and colonoscopy performed today. Will supplement oral iron after EGD/colonoscopy. EGD showed mild gastritis otherwise normal EGD as reported by her report. Discharged on oral iron. Patient was Hemoccult positive. 7. Hypophosphatemia - Due to poor oral intake -discharge on Neutra-Phos. 8. Hypokalemia - Due to poor oral intake. Mild hyperkalemia today 3.3. Will replace orally. 9. HTN - stable during hospitalization. The patient's home antihypertensive medications were continued. These include Doxazosyn and losartan. 6. Social work for d/c planning as needed. Discharge Planning Discharge back to long-term care today. Jorge Veloz MD May 24, 2016 14:33
[2016-05-24] MEDS ORDERED: BISA10R PR (14:37)
[2016-05-24] MEDS ORDERED: KPHOS250 PO (14:37)
[2016-05-24] MEDS ORDERED: LACT10SO G-TUBE (14:37)
--- NOTE | 2016-05-24 14:38 | HHI.DCPOC ---
Discharge Care Plan Diagnosis: (1) Obstipation (2) Hypokalemia (3) Constipation (4) Dehydration (5) Colitis (6) Fecal impaction (7) Leukocytosis (8) Hypophosphatemia Goals to Promote Your Health * To prevent worsening of your condition and complications * To maintain your health at the optimal level Directions to Meet Your Goals Take your medications as prescribed Follow your dietary instruction Follow activity as directed Keep your appointments as scheduled Take your immunizations and boosters as scheduled If your symptoms worsen call your PCP, if no PCP go to Urgent Care Center or Emergency Room Smoking is Dangerous to Your Health. Avoid second hand smoke Call the 24-hour hour crisis hotline for domestic abuse at Jorge Veloz MD May 24, 2016 14:38
[2016-05-24] MEDS ORDERED: CIPR500T2 PO (14:43)
[2016-05-24] MEDS ORDERED: METR-1 PO (14:43)
--- NOTE | 2016-05-24 15:06 | HHI.DS ---
Discharge Summary Admission Date May 21, 2016 at 18:47 Discharge Date: May 24, 2016 Admitting Diagnosis obstipation, bowel obstruction (1) Fecal impaction ICD Code: K56.41 Diagnosis: Principal (2) Constipation ICD Code: K59.00 Diagnosis: Principal (3) Dehydration ICD Code: E86.0 Diagnosis: Principal (4) Leukocytosis ICD Code: D72.829 Diagnosis: Principal (5) Hypokalemia ICD Code: E87.6 Diagnosis: Principal (6) Colitis ICD Code: K52.9 Diagnosis: Principal (7) Hypophosphatemia ICD Code: E83.39 Diagnosis: Principal (8) Gastritis ICD Code: K29.70 Diagnosis: Principal (9) Colon polyp ICD Code: K63.5 Diagnosis: Principal (10) Protein calorie malnutrition ICD Code: E46 Diagnosis: Principal Procedures EGD/colonoscopy on 05/24/16. Brief History - From Admission Is an 81-year-old male with PMH of HTN, Anxiety, Depression, Prostate CA, Chronic Pain, Post Laminectomy Syndrome and PEG Tube Placement who was sent to the ER from [facility] for evaluation of abdominal distention, nausea and vomiting. Recent ER visit 05/12/16 for similar symptoms, CT Abd/ Pelvis 05/12/16 w/ fecal impaction, d/c'd from ER w/ prescription for Enema. Sent to ER again today for same. Per records, pt with no BM x1 wk. No fever or diarrhea reported. Pt unable to provide history. On arrival, BP 125/75, HR 105, O2 sat 100% on RA, Afebrile. WBC 11.6. GFR 59 decreased from 98 on . UA negative for UTI. CXR with no acute findings. CT Abd/Pelvis w/ diffuse fluid and gaseous distention of bowel throughout, significant stool again noted within the rectum. GI Consult placed by ER physician, s/p Protonix IV in ER. CBC/BMP: 05/23/16 0956 05/23/16 0956 Significant Findings Laboratory Tests Test 05/21/16 05/21/16 05/22/1605/22/17 16:00 17:12 05:38 17:22 White Blood Count 11.6 TH/MM3 11.3 TH/MM3 (4.0-11.0) (4.0-11.0) Red Blood Count 3.54 MIL/MM3 2.75 MIL/MM3 2.73 MIL/MM3 (4.50-5.90) (4.50-5.90) (4.50-5.90) Hemoglobin 10.9 GM/DL 8.4 GM/DL 8.4 GM/DL (13.0-17.0) (13.0-17.0) (13.0-17.0) Hematocrit 31.8 % 24.8 % 24.5 % (39.0-51.0) (39.0-51.0) (39.0-51.0) Neutrophils (%) (Auto) 89.2 % 75.6 % 73.9 % (16.0-70.0) (16.0-70.0) (16.0-70.0) Lymphocytes (%) (Auto) 7.1 % (9.0-44.0) Neutrophils # (Auto) 10.3 TH/MM3 8.6 TH/MM3 (1.8-7.7) (1.8-7.7) Lymphocytes # (Auto) 0.8 TH/MM3 (1.0-4.8) Sodium Level 133 MEQ/L (136-145) Blood Urea Nitrogen 25 MG/DL (7-18) 33 MG/DL (7-18) Estimat Glomerular Filtration 59 ML/MIN (>89) 73 ML/MIN (>89) Rate Random Glucose 188 MG/DL 109 MG/DL (74-106) (74-106) Total Protein 9.1 GM/DL (6.4-8.2) Albumin 3.1 GM/DL 2.4 GM/DL (3.4-5.0) (3.4-5.0) Urine Protein 30 mg/dL (NEG-TRACE) Urine Ketones TRACE mg/dL (NEG) Urine Mucus FEW /lpf (OCC) Calcium Level 8.2 MG/DL (8.5-10.1) Mean Platelet Volume 6.6 FL (7.0-11.0) Test 05/23/16 09:56 Red Blood Count 2.72 MIL/MM3 (4.50-5.90) Hemoglobin 8.3 GM/DL (13.0-17.0) Hematocrit 25.0 % (39.0-51.0) Mean Platelet Volume 6.5 FL (7.0-11.0) Neutrophils (%) (Auto) 75.2 % (16.0-70.0) Potassium Level 3.3 MEQ/L (3.5-5.1) Chloride Level 109 MEQ/L (98-107) Blood Urea Nitrogen 19 MG/DL (7-18) Estimat Glomerular Filtration 77 ML/MIN (>89) Rate Random Glucose 111 MG/DL (74-106) Calcium Level 7.8 MG/DL (8.5-10.1) Phosphorus Level 1.5 MG/DL (2.5-4.9) Iron Level 40 MCG/DL (65-175) Total Iron Binding Capacity 199 MCG/DL (250-450) Aspartate Amino Transf 42 U/L (15-37) (AST/SGOT) Albumin 2.2 GM/DL (3.4-5.0) Imaging Last Impressions Abdomen/Pelvis CT 05/21/16 1629 Signed Impressions: Service Date/Time: Saturday, May 21, 2016 16:54 - CONCLUSION: Diffuse fluid and gaseous distention of bowel throughout. Significant stool again noted within the rectum. No other acute CT findings. Jose Breen MD Chest X-Ray 05/21/16 1543 Signed Impressions: Service Date/Time: Saturday, May 21, 2016 15:59 - CONCLUSION: No acute pulmonary infiltrates. Distended air-filled loops of colon. Franki Melton MD PE at Discharge GENERAL: Elderly white male in no acute distress, nonverbal HEENT: PERRLA, EOMI. No scleral icterus or conjunctival pallor. No lid lag or facial droop. CARDIOVASCULAR: Regular rate and rhythm. No obvious murmurs to auscultation. No chest tenderness to palpation. RESPIRATORY: No obvious rhonchi or wheezing. Clear to auscultation. Breath sounds equal bilaterally. GASTROINTESTINAL: Abdomen soft, non-tender, Distended. BS normal. PEG tube in place - C/D/I no erythema or discharge noted around PEG insertion. MUSCULOSKELETAL: Extremities without clubbing, cyanosis, or edema. No obvious deformities. NEUROLOGICAL: Awake, alert, nonverbal. No new focal neurologic deficits. Moving both upper and lower extremities spontaneously. Hospital Course . Fecal Impaction: sent to ER from SNF secondary to abdominal distention, nausea/vomiting, similar presentation 05/12/16, CT Abd/Pelvis at that time w/ fecal impaction. CT Abd/Pelvis today w/ similar findings, significant stool in rectum and diffuse fluid/gaseous distention, images reviewed by me. GI Consulted by ER physician. S/p Protonix IV in ER. IVF for hydration, Lactulose , Dulcolax as needed. Patient constipation resolved after above-mentioned management. GI consulted. Laxatives were continued. EGD was performed, it showed mild gastritis and colonoscopy showed an ascending colon polyp, sigmoid diverticulosis moderate, otherwise unremarkable colonoscopy. Continue PPI and follow-up with gastroenterology as an outpatient for further management after pathology results are available. 2. Constipation: Per SNF report, no BM in 1wk, CT w/ no obvious obstruction however significant amount of stool. IVF for hydration, Lactulose, Dulcolax, GI following. Constipation seems to have resolved. 3. Dehydration: GFR 59, decreased from 98 o 05/12/16. U/a negative for UTI. Resolved after IV fluid administration. Dehydration likely secondary to poor oral intake. 4. Leukocytosis: U/a negative, CXR w/ no acute infiltrate, images reviewed by me. Likely intra-abdominal source, start IV Cipro/Flagyl for empiric treatment of suspected colitis. WBC now resolved. 5. DVT Prophylaxis: SCD/Teds. 6. Anemia: Normocytic - iron panel consistent with early iron deficiency anemia. EGD and colonoscopy performed today. Will supplement oral iron after EGD/colonoscopy. EGD showed mild gastritis otherwise normal EGD as reported by her report. Discharged on oral iron. Patient was Hemoccult positive. 7. Hypophosphatemia - Due to poor oral intake -discharge on Neutra-Phos. 8. Hypokalemia - Due to poor oral intake. Mild hyperkalemia today 3.3. Will replace orally. 9. HTN - stable during hospitalization. The patient's home antihypertensive medications were continued. These include Doxazosyn and losartan. Pt Condition on Discharge: Stable Discharge Disposition: Discharge to SNF Discharge Time: > 30 minutes Discharge Instructions DIET: Follow Instructions for: On Tube Feeding Activities you can perform: See Additionl Instruction Other Activity Instructions: oob with assistance Follow up Referrals: Gastroenterology - 2 Weeks PCP Follow-up - 1 Week New Medications: Ciprofloxacin (Ciprofloxacin) 500 Mg Tab 500 MG PO BID Infection #10 Ref 0 TAB Metronidazole (Flagyl) 500 Mg Tab 500 MG PO TID Infection #15 Ref 0 TAB Bisacodyl Supp (Bisac-Evac Supp) 10 Mg Supp 10 MG W[place] DAILY PRN CONSTIPATION #30 SUPP Lactulose Liq (Lactulose Liq) 10 Gm/15 Ml Soln 30 ML G-TUBE QID Constipation #1 BOTTLE Potassium Phosphate-Sodium Phosphate (K-Phos Neutral) 155-852-130 Mg Tab 250 MG PO Q8H hypophosphatemia Days 5 TAB Continued Medications: Artificial Tear Solution Opth Drops (Natural Balance Tears Opth Drops) 0.1-0.3% Soln 1 DROP EACH EYE QID Dry Eye Cholecalciferol (Vitamin D3) 2,000 Unit Cap 4000 UNITS G-TUBE DAILY Nutritional Supplement #1 Ref 0 BOTTLE Dextromethorphan HBr-Quinidine (Nuedexta 20-10 mg) 1 Cap Cap 1 CAP G-TUBE Q12HR PBA #60 Ref 0 CAP Doxazosin (Doxazosin) 4 Mg Tab 4 MG G-TUBE DAILY HYPERTENSION #30 Ref 0 TAB Ferrous Sulfate (Ferrous Sulfate) 325 Mg Tab 325 MG G-TUBE BID Nutritional Supplement #30 Ref 0 TAB Ipratropium-Albuterol Neb (Duoneb) 0.5-2.5 Mg/3 Ml Neb 1 NEBULE INH Q6HR NEB PRN SHORTNESS OF BREATH #120 Ref 0 NEBULE Lorazepam (Lorazepam) 1 Mg Tab 1 MG G-TUBE Q6H PRN ANXIETY Ref 0 TAB Losartan (Losartan) 100 Mg Tab 100 MG G-TUBE DAILY Blood Pressure Management #30 Ref 0 TAB Risperidone (Risperdal) 0.5 Mg Tab 0.5 MG G-TUBE HS Depression Control #30 Ref 0 TAB Tramadol (Ultram) 50 Mg Tab 50 MG G-TUBE Q6H PRN PAIN Ref 0 TAB Discontinued Medications: Ascorbic Acid (Vitamin C) 500 Mg Tab 500 MG G-TUBE Nutritional Supplement Ref 0 TAB Cimetidine (Cimetidine) 200 Mg Tab 200 MG G-TUBE BID SEXUAL BEHAVIOR Ref 0 TAB Jorge Veloz MD May 24, 2016 15:05
[2016-05-24] MEDS ORDERED: ULTR50TA5 G-TUBE (15:09)
[2016-05-24] MEDS ORDERED: LORA1TAB12 G-TUBE (15:09)
== END 2016-05-24 16:24 | DRG 389 ==
LOC: NEPA 15:27 → NEDA 18:47 → HOCB 22:10
PROVIDERS: ADMIT Hospitalist; ATTEND Hospitalist
PROC: 0DB68ZX Excision of Stomach, Via Natural or Artificial Opening Endoscopic, Diagnostic (ICD-10-PCS; principal; 2016-05-24 09:00)
PROC: 0DBK8ZX Excision of Ascending Colon, Via Natural or Artificial Opening Endoscopic, Diagnostic (ICD-10-PCS; 2016-05-24 09:00)
DX: K56.41 Fecal impaction (principal); E46 Unspecified protein-calorie malnutrition; Z93.1 Gastrostomy status; E83.39 Other disorders of phosphorus metabolism; E86.0 Dehydration; I10 Essential (primary) hypertension; M96.1 Postlaminectomy syndrome, not elsewhere classified; Z98.1 Arthrodesis status; G89.29 Other chronic pain; F41.8 Other specified anxiety disorders; Z85.46 Personal history of malignant neoplasm of prostate; E87.6 Hypokalemia; K52.9 Noninfective gastroenteritis and colitis, unspecified; K29.70 Gastritis, unspecified, without bleeding; D12.2 Benign neoplasm of ascending colon; K57.30 Diverticulosis of large intestine without perforation or abscess without bleeding; Z68.27 Body mass index [BMI] 27.0-27.9, adult; D50.9 Iron deficiency anemia, unspecified; Z92.3 Personal history of irradiation; Z96.611 Presence of right artificial shoulder joint; Z96.653 Presence of artificial knee joint, bilateral
CPT/HCPCS: 71010; 74176; 80053; 81001; 82272; 82728; 83540; 83550; 83690; 83735; 84100; 85025; 85610; 85730; 88305; 88312; 93005; 94664; 96361; 96374; 96375; C1769; C9113; J0744; J2370; J2405; J7030